=== PATIENT | female | born 1980 | race Caucasian/White ===

== ENCOUNTER 2017-07-04 15:45 | Emergency (ER) | payer BC, SELFPAY ==
[2017-07-04 17:41] VITALS: BP 138/99; PULSE 110; RESP 20; TEMP 37.6; O2SAT 98; BMI 33.4
--- NOTE | 2017-07-04 17:46 | HMH.EDUTC ---
[facility] [place]: Influenza Disposition: Home, Self-Care Condition on Discharge: Good Instructions: Influenza Additional Instructions: * Monitor Temp. Tylenol and/or Ibuprofen as needed. ER if fever is no less than 101 despite alternating Tylenol and Ibuprofen * Encourage fluids, water, Gatorade, powerade, pedialyte if infant/toddler/or child * Warm salt water gargles for throat irritation *Warm fluids *Sore throat lozenges *Sleep elevated *humidifier or vaporizer Lots of rest Increase fluids, water, Gatorade, powerade *Flonase 2 sprays each nostril daily but may take 2-3 days to notice improvement with it *Bromfed may cause drowsiness. Know how it effect you or your child. Before driving, caring for small children or sending your child to school *Your throat swab was sent to lab for culture. Those results area typically sent to your primary care physician. Be sure to follow up in 2-3 days if no improvement so they can review those results and treat if necessary If you dont have primary care I recommend you get one, but in the mean time you will have to return to a walk in clinic Follow up IMMEDIATELY for new or worsening of symptoms OR no noticeable improvement over the next 48-72 hours. 911 immediately for any life threatening symptoms such as chest pain or difficulty breathing Prescriptions: Brompheniramine/Pseudoephed/Dm [Bromfed DM Cough Syrup 5mL] 10 ml PO Q4H PRN #200 syrup PRN Reason: Cough Oseltamivir Phosphate [Tamiflu 75mg Capsule] 75 mg PO BID #10 capsule Referrals: Wilfred Alvarez MD [Primary Care Provider] - Time of Disposition: 17:59 Medical Decision Making Vital Signs: 07/04/17 17:41 Temperature 99.6 F Temperature Source Temporal Artery Scan Pulse Rate [Right] 110 H Respiratory Rate 20 Blood Pressure [Right Arm] 138/99 Blood Pressure Mean [Right Arm] 112 Blood Pressure Source [Right Arm] Automatic Cuff Blood Pressure Position [Right Arm] Sitting 02 Sat by Pulse Oximetry 98 Oxygen Delivery Method Room Air - Marino Inquiry Pt receiving controlled substance: No Marino was queried for this patient: No [facility] [place] - General Stated complaint: Cough,ferver,pain Mode of Arrival: Ambulatory Source of Information: Patient Limitations: No Limitations Description of Symptoms (Recalled from Triage Doc. by RN): COUGH, CONGESTION FEVER YESTERDAY HEENT Symptoms (Recalled from RN notes): Yes Resp Symptoms (Recalled from RN notes): No Skin Symptoms (Recalled from RN notes): No MS Symptoms (Recalled from RN notes): No Functional Status (Recalled from RN notes): N - History of Present Illness Provider Complaint: Patient states that she has been having flu like symptoms since yesterday State that she began running a fever and it has continued to get worse State that she feel like she has the flu. State that body aches has continued to get worse so she came in to get checked - Related Data Previous Rx's Medication Instructions Recorded Brompheniramine/Pseudoephed/Dm 10 ml PO Q4H PRN #200 syrup 07/04/17 [Bromfed DM Cough Syrup 5mL] Oseltamivir Phosphate [Tamiflu 75 mg PO BID #10 cap 07/04/17 75mg Capsule] Allergies Allergy/AdvReac Type Severity Reaction Status Date / Time No Known Allergies Allergy Unverified 06/19/17 15:38 - Worker's Comp Is this a Worker's Comp case?: No [facility] History - *Social History Smoking Status: Current every day smoker Tobacco Type: cigarettes Alcohol Intake: never - Psychiatric History Expresses thoughts of harming self/others: None Suicide Plan Description: No Plan - Constitutional Reports body ache(s), Reports chills, Reports fever(s) - ENT Reports nasal congestion, Reports sinus pain - Respiratory Reports cough Physical Exam - General General appearance: alert, in no apparent distress - Expanded ENT Exam Nose exam: Present: sinus tenderness - Respiratory Respiratory exam: Present: normal lung sounds bilat
--- NOTE | 2017-07-04 17:52 | ED_ITS ---
[facility] [place]: Influenza Disposition: Home, Self-Care Condition on Discharge: Good Instructions: Influenza Additional Instructions: * Monitor Temp. Tylenol and/or Ibuprofen as needed. ER if fever is no less than 101 despite alternating Tylenol and Ibuprofen * Encourage fluids, water, Gatorade, powerade, pedialyte if infant/toddler/or child * Warm salt water gargles for throat irritation *Warm fluids *Sore throat lozenges *Sleep elevated *humidifier or vaporizer Lots of rest Increase fluids, water, Gatorade, powerade *Flonase 2 sprays each nostril daily but may take 2-3 days to notice improvement with it *Bromfed may cause drowsiness. Know how it effect you or your child. Before driving, caring for small children or sending your child to school *Your throat swab was sent to lab for culture. Those results area typically sent to your primary care physician. Be sure to follow up in 2-3 days if no improvement so they can review those results and treat if necessary If you don? t have primary care I recommend you get one, but in the mean time you will have to return to a walk in clinic Follow up IMMEDIATELY for new or worsening of symptoms OR no noticeable improvement over the next 48-72 hours. 911 immediately for any life threatening symptoms such as chest pain or difficulty breathing Prescriptions: Brompheniramine/Pseudoephed/Dm [Bromfed DM Cough Syrup 5mL] 10 ml PO Q4H PRN # 200 syrup PRN Reason: Cough Oseltamivir Phosphate [Tamiflu 75mg Capsule] 75 mg PO BID #10 capsule Referrals: Wilfred Alvarez MD [Primary Care Provider] - Time of Disposition: 17:59 Medical Decision Making Vital Signs: 07/04/17 17:41 Temperature 99.6 F Temperature Source Temporal Artery Scan Pulse Rate [Right] 110 H Respiratory Rate 20 Blood Pressure [Right Arm] 138/99 Blood Pressure Mean [Right Arm] 112 Blood Pressure Source [Right Arm] Automatic Cuff Blood Pressure Position [Right Arm] Sitting 02 Sat by Pulse Oximetry 98 Oxygen Delivery Method Room Air - Marino Inquiry Pt receiving controlled substance: No Marino was queried for this patient: No [facility] [place] - General Stated complaint: Cough,ferver,pain Mode of Arrival: Ambulatory Source of Information: Patient Limitations: No Limitations Description of Symptoms (Recalled from Triage Doc. by RN): COUGH, CONGESTION FEVER YESTERDAY HEENT Symptoms (Recalled from RN notes): Yes Resp Symptoms (Recalled from RN notes): No Skin Symptoms (Recalled from RN notes): No MS Symptoms (Recalled from RN notes): No Functional Status (Recalled from RN notes): N - History of Present Illness Provider Complaint: Patient states that she has been having flu like symptoms since yesterday State that she began running a fever and it has continued to get worse State that she feel like she has the flu. State that body aches has continued to get worse so she came in to get checked - Related Data Previous Rx's Medication Instructions Recorded Brompheniramine/Pseudoephed/Dm 10 ml PO Q4H PRN #200 syrup 07/04/17 [Bromfed DM Cough Syrup 5mL] Oseltamivir Phosphate [Tamiflu 75 mg PO BID #10 cap 07/04/17 75mg Capsule] Allergies Allergy/AdvReac Type Severity Reaction Status Date / Time No Known Allergies Allergy Unverified 06/19/17 15:38 - Worker's Comp Is this a Worker's Comp case?: No [facility] History -
[2017-07-04 17:58] LABS: UTC Influenza A Antigen Positive (Negative); UTC Influenza B Antigen Negative (Negative)
== END 2017-07-04 18:05 | disposition home or self-care (01) ==
PROVIDERS: Emergency Provider Nurse Practitioner; PCP Family Medicine
DX: J10.1 Influenza due to other identified influenza virus with other respiratory manifestations (principal); F17.210 Nicotine dependence, cigarettes, uncomplicated
CPT/HCPCS: 87276; 87430; 87804; 87880; 99202

== ENCOUNTER → 2019-01-16 15:02 | Outpatient (CLI) | payer OTHER, SELFPAY ==
[2019-01-16 17:35] LABS: Alanine Aminotransferase 83 U/L (12-78); Albumin Level 3.8 gm/dL (3.4-5.0); Albumin/Globulin Ratio 1.1 (1.1-1.8); Alkaline Phosphatase 73 U/L (46-116); Anion Gap 11.3 mEq/L (5-15); Aspartate Amino Transferase 61 U/L (15-37); Bilirubin,Total 0.3 mg/dL (0.2-1.0); Blood Urea Nitrogen 10 mg/dL (7-18); Calcium 9.3 mg/dL (8.5-10.1); Carbon Dioxide 30 mmol/L (21.0-32.0); Chloride 101 mmol/L (98-107); Chol/HDL Ratio 4.7 (1-3.5); Cholesterol 159 mg/dL (140-200); Creatinine,Serum 0.69 mg/dL (0.55-1.02); Estimated Glomerular Filt Rate 96 ml/min (>60); GFR (African American) 116 ML/MIN (>60); Globulin 3.4 gm/dl (1.3-3.2); Glucose 216 mg/dL (74-106); HDL Cholesterol 34 mg/dL (29-89); LDL Cholesterol 76 mg/dL (0-130); Potassium 4.3 mmoL/L (3.5-5.1); Sodium 138 mmol/L (136-145); Total Protein,Serum 7.2 gm/dL (6.4-8.2); Triglycerides 245 mg/dL (30-200); VLDL Cholesterol 49 mg/dL (0-40)
[2019-01-16 17:46] LABS: Hemoglobin A1C 11.4 % (0.0-7.0)
[2019-01-22 06:20] LABS: Hep A Ab, IgM Negative (Negative); Hepatitis B Core Antibody IgM Negative (Negative); Hepatitis B Surface Antigen Negative (Negative)
[2019-01-23 08:15] LABS: Hepatitis C Antibody <0.1 s/co ratio (0.0-0.9)
== END ==
PROVIDERS: Visit Provider Nurse Practitioner Family
DX: Z00.00 Encounter for general adult medical examination without abnormal findings (principal); R74.8 Abnormal levels of other serum enzymes; E11.9 Type 2 diabetes mellitus without complications; I10 Essential (primary) hypertension
CPT/HCPCS: 36415; 80053; 80061; 80074; 83036

== ENCOUNTER → 2019-02-17 08:35 | Outpatient (CLI) | payer OTHER, SELFPAY ==
--- NOTE | 2019-02-17 08:42 | US_ITS ---
PROCEDURE: US LIVER CLINICAL INDICATION: ELEVATED LIVER ENZYMES COMPARISON: No exams were available for comparison FINDINGS: There is slight diffuse increased echogenicity of the liver consistent with fatty liver. No focal liver lesions or biliary ductal dilatation. There is appropriate direction of blood flow within a non dilated portal vein. No gallstones, gallbladder wall thickening, or pericholecystic fluid. The right kidney has an unremarkable appearance. IMPRESSION: Fatty liver Dictated by: Laci Blake MD 02/17/2019 16:11 Signed by: <Electronically signed by Laci Blake MD in [place]> 02/17/2019 16:11
== END ==
PROVIDERS: PCP Nurse Practitioner Family; Visit Provider Nurse Practitioner Family
DX: R74.8 Abnormal levels of other serum enzymes (principal)
CPT/HCPCS: 76705

== ENCOUNTER → 2019-02-27 08:50 | Outpatient (CLI) | payer OTHER, SELFPAY | PROVIDERS: PCP Internal Medicine Adolescent Medicine; Visit Provider Nurse Practitioner Family | DX: Z71.3 Dietary counseling and surveillance (principal); E11.9 Type 2 diabetes mellitus without complications | CPT/HCPCS: 97802 ==

== ENCOUNTER 2020-05-28 10:19 | Emergency (ER) | payer OTHER, SELFPAY ==
[2020-05-28 10:49] VITALS: BP 170/90; PULSE 100; RESP 16; TEMP 37.2; O2SAT 98; BMI 32.1
--- NOTE | 2020-05-28 10:52 | HMH.EDUTC ---
[facility] [place] Clinical Impression: Acute bronchitis Qualifiers: Bronchitis organism: unspecified organism Qualified Code(s): J20.9 - Acute bronchitis, unspecified Sinusitis Qualifiers: Sinusitis location: unspecified location Chronicity: acute Recurrence: non-recurrent Qualified Code(s): J01.90 - Acute sinusitis, unspecified Disposition: Home, Self-Care Condition on Discharge: Good Instructions: Sinusitis, DI for Acute Bronchitis Additional Instructions: Drink plenty of fluids. Take tylenol or ibuprofen for pain or fever. Take the medications as directed. Follow up with your regular doctor. GO TO THE ER FOR ANY WORSENING SYMPTOMS The cough medication (promethazine dm) will make you drowsy, so don't drive or operate heavy machinery after taking it. Prescriptions: Promethazine/Dextromethorphan [Promethazine-Dm Syrup] 5 ml PO Q6HP PRN #240 syrup PRN Reason: Cough Transmission Status: Received by [facility] #[id number] methylPREDNISolone [Medrol] 4 mg PO DIRECTED 6 Days #21 tab.ds.pk Transmission Status: Received by [facility] #[id number] Benzonatate [Tessalon Perle 100mg Cap] 100 mg PO TIDP PRN #30 cap PRN Reason: Cough Transmission Status: Received by [facility] # Azithromycin [Z-Brandyn 250mg Tab*] 250 mg PO UD DOSE PK #6 tab Transmission Status: Received by [facility] #[id number] Referrals: Jack Merritt MD [Primary Care Provider] - Forms: Work/School Release Time of Disposition: 10:56 Medical Decision Making - Medical Records Medical records reviewed: No: I reviewed the patient's medical records. - Marino Inquiry Pt receiving controlled substance: No Vital Signs: 05/28/20 10:49 05/28/20 11:04 Temperature 98.9 F 98.9 F Temperature Source Oral Oral Pulse Rate 64 Pulse Rate [Right] 100 H Respiratory Rate 16 16 Blood Pressure 160/64 H Blood Pressure [Right Arm] 170/90 H Blood Pressure Mean [Right Arm] 116 Blood Pressure Source Automatic Cuff Blood Pressure Source [Right Arm] Automatic Cuff Blood Pressure Position Sitting Blood Pressure Position [Right Arm] Sitting 02 Sat by Pulse Oximetry 98 Oxygen Delivery Method Room Air Room Air [facility] HPI - General Stated complaint: Cough, fever Time Seen by Provider: 05/28/20 10:52 Mode of Arrival: Ambulatory Source of Information: Patient Limitations: No Limitations Description of Symptoms (Recalled from Triage Doc. by RN): pt c/o cough, sore throat, fever that started yesterday HEENT Symptoms (Recalled from RN notes): Yes (cough, sore throat, fever) Resp Symptoms (Recalled from RN notes): No Skin Symptoms (Recalled from RN notes): No MS Symptoms (Recalled from RN notes): No Functional Status (Recalled from RN notes): na - History of Present Illness Provider Complaint: She states that since yesterday she has had a cough, chest congestion, sinus congestion, and sore throat. She denies any known covid exposure, but her job causes her to be around the public. - Related Data Previous Rx's Medication Instructions Recorded Cyclobenzaprine HCl [Flexeril 10mg 10 mg PO Q8HP PRN #20 tablet 08/21/18 tablet] Ondansetron [Zofran 4mg ODT] 4 mg PO Q8HP PRN #10 tab.rapdis 09/16/18 Oseltamivir Phosphate [Tamiflu 75 mg PO BID #10 capsule 09/17/18 75mg Capsule] Azithromycin [Z-Brandyn 250mg Tab*] 250 mg PO UD DOSE PK #6 tab 05/28/20 Benzonatate [Tessalon Perle 100mg 100 mg PO TIDP PRN #30 cap 05/28/20 Cap] Promethazine/Dextromethorphan 5 ml PO Q6HP PRN #240 syrup 05/28/20 [Promethazine-Dm Syrup] methylPREDNISolone [Medrol] 4 mg PO DIRECTED 6 Days #21 05/28/20 tab.ds.pk Allergies Allergy/AdvReac Type Severity Reaction Status Date / Time No Known Allergies Allergy Verified 10/24/17 20:34 - Worker's Comp Is this a Worker's Comp case?: No H History - Hepatitis A Screen Drug use history?: No High risk sexual behaviors?: No History of sexually transmitted
[2020-05-28 11:04] VITALS: BP 160/64; PULSE 64; RESP 16; TEMP 37.2; O2SAT 96
== END 2020-05-28 11:05 | disposition home or self-care (01) ==
PROVIDERS: Emergency Provider Nurse Practitioner Family; PCP Internal Medicine Adolescent Medicine
DX: J20.9 Acute bronchitis, unspecified (principal); J01.90 Acute sinusitis, unspecified
CPT/HCPCS: 99201; U0003

== ENCOUNTER 2020-07-05 17:56 | Emergency (ER) | payer BC, SELFPAY ==
[2020-07-05 19:30] VITALS: BP 147/90; PULSE 87; RESP 19; TEMP 36.9; O2SAT 100; BMI 31.4
--- NOTE | 2020-07-05 19:50 | HMH.EDUTC ---
[facility] [place] Impression: URI (upper respiratory infection) Qualifiers: URI type: unspecified URI Qualified Code(s): J06.9 - Acute upper respiratory infection, unspecified Disposition: Home, Self-Care Condition on Discharge: Good Instructions: DI for COVID-19 (Suspected or Confirmed ), Coronavirus Disease 2019, Preventing the Spread of Coronavirus Discharge Instructions, Sinusitis (Alternative Therapy) Additional Instructions: *Monitor Temp, Over the counter Motrin or Tylenol as directed/as needed Tylenol every 4 hours and Motrin every 6 hours (as long as your family doctor has told you that you can take it) for fever or pain. and straight to ER if unable to lower temp less than 101.0 after medication given *Warm salt water gargles may help to soothe the throat *Throat Lozenges *Warm fluids like tea with honey may help to soothe the throat *Sleep elevated *Humidifier/Vaporizer *Flonase 2 sprays in each nostril daily but be aware that it may take 2-3 days before you notice improvement Follow up IMMEDIATELY for new or worsening symptoms or no Noticeable improvement over the next 48-72 hours. 911 for difficulty breathing or swallowing You were tested for today for COVID19 your test result should be back in the next 24-48 hours, you may call to the [facility] to see if your test results are back in the next 48 hours [phone] [facility] hours are 9am-9pm You was given a handout with instructions for Self Quarantine and Self isolation for while you wait on test results and what to do if they are positive If you are positive the Health Dept will be contacting you also Prescriptions: Fluticasone Propionate [Flonase 50mcg nasal spray 16gm] 1 spr NS DAILY #1 bottle Transmission Status: Pending to [id number] Benzonatate [Tessalon Perle 100mg Cap*] 100 mg PO TID PRN #20 cap PRN Reason: Cough Transmission Status: [facility] to [facility] Azithromycin [Z-Brandyn 250mg Tab] 250 mg PO DIRECTED #6 tab Transmission Status: P[facility] to [facility] Referrals: Jack Merritt MD [Primary Care Provider] - As needed Forms: Work/School Release Time of Disposition: 19:57 Medical Decision Making - Marino Inquiry Pt receiving controlled substance: No Marino was queried for this patient: No Vital Signs: 07/05/20 19:30 Temperature 98.4 F Temperature Source Oral Pulse Rate [Right Brachial] 87 Respiratory Rate 19 Blood Pressure [Right Arm] 147/90 H Blood Pressure Mean [Right Arm] 109 Blood Pressure Source [Right Arm] Automatic Cuff Blood Pressure Position [Right Arm] Sitting 02 Sat by Pulse Oximetry 100 Oxygen Delivery Method Room Air - Lab Data Lab results reviewed: Yes: I reviewed the patient's lab results. Orders (Tests/Meds): ORDERS Category Date Time Status Covid-19 Nasal PCR ([facility]) Routine Lab 07/05/20 19:39 Ordered Medical Decision Narrative: Patient reports that she has taken azithromycin and tessalone perrles before without reactions or complications [facility] [place] General Stated complaint: cough Time Seen by Provider: 07/05/20 19:50 Mode of Arrival: Ambulatory Source of Information: Patient Limitations: No Limitations Description of Symptoms (Recalled from Triage Doc. by RN): PATEINT C/O COUGH, PAIN WITH BREATHING, HEADACHE AND DIARRHEA X 3 DAYS HEENT Symptoms (Recalled from RN notes): No Resp Symptoms (Recalled from RN notes): No Skin Symptoms (Recalled from RN notes): No MS Symptoms (Recalled from RN notes): No Functional Status (Recalled from RN notes): WNL - History of Present Illness Provider Complaint: Patient state that she thinks she has a sinus infection State that she has been having sinus pain and pressure, headache, sore throat and cough State that she has been coughing so much at times it makes her head hurt State that she was unable to go to work because they wont let her return until she gets tested for COVID - Related Data Previous Rx's Medication
[2020-07-05 20:15] VITALS: BP 147/90; PULSE 87; RESP 19; TEMP 36.9; O2SAT 100
[2020-07-05 21:16] LABS: UTC Influenza A Antigen Negative (Negative); UTC Influenza B Antigen Negative (Negative)
== END 2020-07-05 20:16 | disposition home or self-care (01) ==
PROVIDERS: Emergency Provider Nurse Practitioner; PCP Internal Medicine Adolescent Medicine
DX: Z20.822 Contact with and (suspected) exposure to COVID-19 (principal); J06.9 Acute upper respiratory infection, unspecified; E11.9 Type 2 diabetes mellitus without complications
CPT/HCPCS: 87804; 99202; G0463; U0003

== ENCOUNTER → 2021-03-21 17:11 | Outpatient (CLI) | payer BC, SELFPAY | PROVIDERS: PCP Internal Medicine Adolescent Medicine; Visit Provider Nurse Practitioner | DX: Z20.822 Contact with and (suspected) exposure to COVID-19 (principal) | CPT/HCPCS: C9803; U0003; U0005 ==

== ENCOUNTER 2021-04-21 12:12 | Emergency (ER) | payer BC, SELFPAY ==
[2021-04-21 12:44] VITALS: BMI 31.3
[2021-04-21 12:46] VITALS: BP 132/86; PULSE 106; RESP 18; TEMP 37.2; O2SAT 98; BMI 31.3
--- NOTE | 2021-04-21 12:52 | HMH.EDUTC ---
[facility] [place] Clinical Impression: URI (upper respiratory infection) Qualifiers: URI type: unspecified viral URI Qualified Code(s): J06.9 - Acute upper respiratory infection, unspecified Disposition: Home, Self-Care Condition on Discharge: Good Instructions: DI for Viral Upper Respiratory Infection -- Adult Additional Instructions: No sign of a bacterial infection. Likely viral. Viruses can take 7-14 days to run their course. Nasal saline and bulb syringe or nose Mary to remove nasal drainage to help with nasal congestion. Hard to eat, drink, sleep with nasal congestion so important to keep this cleaned out. Monitor temp. Tylenol or Motrin as needed for pain or fever Encourage fluids, water, Gatorade, Powerade, Pedialyte if /toddler/child Warm salt water gargles Warm fluids Sore throat lozenges Sleep elevated Humidifier/vaporizer Follow-up immediately for new or worsening symptoms or no noticeable improvement over the next 48-72 hours. Prescriptions: predniSONE [Prednisone 20mg Tab] 20 mg PO BID #10 tab Transmission Status: Pending to [facility] Referrals: Jack Merritt MD [Primary Care Provider] - Time of Disposition: 14:11 Medical Decision Making - Marino Inquiry Pt receiving controlled substance: No Vital Signs: 04/21/21 12:46 Temperature 98.9 F Temperature Source Oral Pulse Rate [Right Radial] 106 H Respiratory Rate 18 Blood Pressure [Right Arm] 132/86 Blood Pressure Mean [Right Arm] 101 Blood Pressure Source [Right Arm] Automatic Cuff Blood Pressure Position [Right Arm] Sitting 02 Sat by Pulse Oximetry 98 Oxygen Delivery Method Room Air - Lab Data Lab Results 04/21/21 12:43: SARS-CoV-2 (PCR) Not detected, Influenza A Untype (PCR) Not detected, Influenza Type B (PCR) Not detected [facility] [place] - General Chief complaint: Urgent [facility] Stated complaint: congestion, sore throat, body aches Time Seen by Provider: 04/21/21 12:52 Mode of Arrival: Ambulatory Source of Information: Patient Limitations: No Limitations Description of Symptoms (Recalled from Triage Doc. by RN): Pt c/o congestion, sore throat, bodyaches, cough since sunday HEENT Symptoms (Recalled from RN notes): Yes (sore throat, congestion) Resp Symptoms (Recalled from RN notes): Yes (cough) Skin Symptoms (Recalled from RN notes): No MS Symptoms (Recalled from RN notes): Yes (bodyaches) Functional Status (Recalled from RN notes): n/a - History of Present Illness Provider Complaint: 41 yr old female presents for c/o congestion, sore throat, bodyaches, cough since sunday - Related Data Previous Rx's Medication Instructions Recorded Cyclobenzaprine HCl [Flexeril 10mg 10 mg PO Q8HP PRN #20 tablet 08/21/18 tablet] Ondansetron [Zofran 4mg ODT] 4 mg PO Q8HP PRN #10 tab.rapdis 09/16/18 Oseltamivir Phosphate [Tamiflu 75 mg PO BID #10 capsule 09/17/18 75mg Capsule] Azithromycin [Z-Brandyn 250mg Tab*] 250 mg PO UD DOSE PK #6 tab 05/28/20 Benzonatate [Tessalon Perle 100mg 100 mg PO TIDP PRN #30 cap 05/28/20 Cap] Promethazine/Dextromethorphan 5 ml PO Q6HP PRN #240 syrup 05/28/20 [Promethazine-Dm Syrup] methylPREDNISolone [Medrol] 4 mg PO DIRECTED 6 Days #21 05/28/20 tab.ds.pk Azithromycin [Z-Brandyn 250mg Tab] 250 mg PO DIRECTED #6 tab 07/05/20 Benzonatate [Tessalon Perle 100mg 100 mg PO TID PRN #20 cap 07/05/20 Cap*] Fluticasone Propionate [Flonase 1 spr NS DAILY #1 bottle 07/05/20 50mcg nasal spray 16gm] predniSONE [Prednisone 20mg 20 mg PO BID #10 tab 04/21/21 Tab] Allergies Allergy/AdvReac Type Severity Reaction Status Date / Time No Known Allergies Allergy Verified 10/24/17 20:34 - Worker's Comp Is this a Worker's Comp case?: No [facility] History - Hepatitis A Screen Drug use history?: No High risk sexual behaviors?: No History of sexually transmitted infection?: No Currently employed?: No Childcare worker?: No Do you have indoor plumbing
[2021-04-21 13:20] LABS: Coronavirus 19, PCR Not Detected (NotDetected); Influenza A, PCR Not Detected (NotDetected); Influenza B, PCR Not Detected (NotDetected)
[2021-04-21 14:05] VITALS: BP 132/86; PULSE 106; RESP 18; TEMP 37.2; O2SAT 98
[2021-04-21 14:56] LABS: UTC Strep Screen (Rapid) Negative (Negative)
== END 2021-04-21 14:05 | disposition home or self-care (01) ==
PROVIDERS: Emergency Provider Nurse Practitioner Family; PCP Internal Medicine Adolescent Medicine
DX: J06.9 Acute upper respiratory infection, unspecified (principal); E11.9 Type 2 diabetes mellitus without complications
CPT/HCPCS: 87880; 99203; C9803; G0463; U0003; U0005

== ENCOUNTER → 2021-05-31 17:40 | Outpatient (CLI) | payer BC, SELFPAY ==
[2021-05-31 19:27] LABS: Alanine Aminotransferase 14 U/L (12-78); Albumin Level 4.7 g/dl (3.5-5.0); Albumin/Globulin Ratio 1.8 (1.1-1.8); Alkaline Phosphatase 59 U/L (38-126); Anion Gap 14.2 mEq/L (5-15); Aspartate Amino Transferase 22 U/L (14-36); Bilirubin,Total 0.2 mg/dl (0.2-1.3); Blood Urea Nitrogen 17 mg/dl (7-17); Calcium 10.4 mg/dl (8.4-10.2); Carbon Dioxide 29 mmol/L (22.0-30.0); Chloride 98 mmol/L (98-107); Chol/HDL Ratio 3.2 (1-3.5); Cholesterol 154 mg/dl (140-200); Estimated Glomerular Filt Rate 93 ml/min (>60); GFR (African American) 113 ML/MIN (>60); Globulin 2.6 g/dL (1.3-3.2); Glucose 94 mg/dl (74-100); HDL Cholesterol 48 mg/dl (40-60); Potassium 4.2 mmoL/L (3.5-5.1); Sodium 137 mmol/L (136-145); Total Protein,Serum 7.3 g/dl (6.3-8.2); Triglycerides 252 mg/dl (30-150); VLDL Cholesterol 50 mg/dL (0-40)
[2021-05-31 19:37] LABS: Direct LDL Cholesterol 76.54 mg/dL (100-129)
== END ==
PROVIDERS: Visit Provider Nurse Practitioner Family
DX: Z00.00 Encounter for general adult medical examination without abnormal findings (principal); I10 Essential (primary) hypertension; E11.9 Type 2 diabetes mellitus without complications
CPT/HCPCS: 36415; 80053; 80061; 83036

== ENCOUNTER 2021-09-09 10:27 | Emergency (ER) | payer OTHER, SELFPAY ==
[2021-09-09 11:40] VITALS: BP 152/87; PULSE 95; RESP 18; TEMP 36.6; O2SAT 98; BMI 32.1
--- NOTE | 2021-09-09 12:02 | HMH.EDUTC ---
[facility] [place] Disposition Clinical Impression: Sinusitis Qualifiers: Sinusitis location: unspecified location Chronicity: unspecified Qualified Code(s): J32.9 - Chronic sinusitis, unspecified Acute bronchitis Qualifiers: Bronchitis organism: unspecified organism Qualified Code(s): J20.9 - Acute bronchitis, unspecified Disposition: Home, Self-Care Condition on Discharge: Good Instructions: Sinusitis, DI for Sinusitis, Acute Bronchitis Additional Instructions: ? Start antibiotic today. Be sure to complete entire prescription even if feeling better ? Monitor temp. Tylenol every 4 hours as needed and / or ibuprofen every 6 hours as needed ( As long as your primary care physician has told you that it ok to take both. For fever/aches/pains ER if no less than 101 despite Tylenol or Motrin ? Humidifier/vaporizer or hot steamy shower ? Inhaler every 4-6 hours as needed like we discussed. If unsure how to use it, ask pharmacist to demonstrate how. Should help open airways and improve cough, wheezing, and shortness of breath ? Mucinex during the day for your cough and cough suppressant only at night. Be sure to drink lots of water. Insurance may not cover a prescriptions for mucinex. Might be cheaper to get 400mg tablets and take 2 tablet in the morning, mid-day and evening with lots of water. Follow up IMMEDIATELY for new or worsening of symptoms OR no noticeable improvement over the next 48-72 hours. 911 immediately for any life threatening symptoms such as chest pain or difficulty breathing Prescriptions: Albuterol Sulfate [Proventil-HFA 90mcg/puff Inh] 1 - 2 puffs IH Q4HP PRN #1 each PRN Reason: Wheezing Transmission Status: Pending to [facility] guaiFENesin [Mucinex 600mg tablet] 1 - 2 tab PO Q12HP PRN #20 tab PRN Reason: Congestion Transmission Status: Pending to [facility] Azithromycin [Z-Brandyn 250mg Tab] 250 mg PO DIRECTED #6 tab Transmission Status: Pending to [facility] Referrals: Jack Merritt MD [Primary Care Provider] - As needed Forms: Work/School Release Time of Disposition: 12:14 Medical Decision Making - Marino Inquiry Pt receiving controlled substance: No Marino was queried for this patient: No Vital Signs: 03/11/22 11:40 Temperature 97.9 F Temperature Source Oral Pulse Rate [Left Brachial] 95 H Respiratory Rate 18 Blood Pressure [Left Arm] 152/87 H Blood Pressure Mean [Left Arm] 108 Blood Pressure Source [Left Arm] Automatic Cuff Blood Pressure Position [Left Arm] Sitting 02 Sat by Pulse Oximetry 98 Oxygen Delivery Method Room Air Orders (Tests/Meds): ORDERS Category Date Time Status Covid-19 Nasal PCR ([facility]) Routine Lab 09/09/21 12:[address] [facility] [place] HPI - General Stated complaint: chest cold, covid test Time Seen by Provider: 09/09/21 12:03 Mode of Arrival: Ambulatory Source of Information: Patient Limitations: No Limitations Description of Symptoms (Recalled from Triage Doc. by RN): PATIENT C/O COUGH AND CHEST COLD X 2 DAYS. NEEDS COVID TEST TO RETURN TO WORK HEENT Symptoms (Recalled from RN notes): No Resp Symptoms (Recalled from RN notes): Yes Skin Symptoms (Recalled from RN notes): No MS Symptoms (Recalled from RN notes): No Functional Status (Recalled from RN notes): WNL - History of Present Illness Provider Complaint: Patient states that she has been having sinus issues on and off for over a week and thinks it may have moved into her chest States that she has been having cough and chest congestion for several days States that she feels like she may have bronchitis or something States that she has to get tested for COVID also because work will not let her return until she does - Related Data Previous Rx's Medication Instructions Recorded Cyclobenzaprine HCl [Flexeril 10mg 10 mg PO Q8HP PRN #20 tablet 08/21/18 tablet] Ondansetron [Zofran 4mg ODT] 4 mg PO Q8HP PRN #10 tab.rapdis 09/16/18 Oseltamivir Phosphate [Tamiflu 75 mg
[2021-09-09 12:18] VITALS: BP 152/87; PULSE 95; RESP 18; TEMP 36.6; O2SAT 98
== END 2021-09-09 12:25 | disposition home or self-care (01) ==
PROVIDERS: Emergency Provider Nurse Practitioner; PCP Internal Medicine Adolescent Medicine
DX: J20.9 Acute bronchitis, unspecified (principal); J32.9 Chronic sinusitis, unspecified; Z20.822 Contact with and (suspected) exposure to COVID-19; E11.9 Type 2 diabetes mellitus without complications; F17.210 Nicotine dependence, cigarettes, uncomplicated; Z79.899 Other long term (current) drug therapy
CPT/HCPCS: 99213; C9803; G0463; U0003; U0005

== ENCOUNTER 2021-10-06 17:32 | Emergency (ER) | payer OTHER, SELFPAY ==
[2021-10-06 17:40] VITALS: BP 152/82; PULSE 117; RESP 19; TEMP 36.9; O2SAT 100; BMI 35.9
--- NOTE | 2021-10-06 18:03 | HMH.EDUTC ---
[facility] [place] Clinical Impression: Flu-like symptoms Disposition: Home, Self-Care Condition on Discharge: Good Instructions: How to Avoid a Cold or Flu, Influenza Additional Instructions: ? Lots of rest ? Increase Fluids water, Gatorade, powerade, pedialyte,if infant/toddler/child ? Alternate Tylenol and / or ibuprofen as discussed for fever, aches, chills Follow up IMMEDIATELY with your family doctor for new or worsening Symptoms OR no noticeable improvement over the next 48-72 hours, 911 for difficulty or breathing ? You or your child area contagious until no fever, aches, chills for 24 hours with medication for symptoms ? Help Prevent the spread ? Wash your hands often. Use soap and water. Wash your hands after you use the bathroom, change a child's diapers, or sneeze. Wash your hands before you prepare or eat food. Use gel hand cleanser that has 60% alcohol, when soap and water are not available. Do not touch your eyes, nose, or mouth unless you have washed your hands first. ? Cover your mouth when you sneeze or cough. Cough into a tissue or the bend of your arm. If you use a tissue, throw it away immediately and wash your hands. ? Clean shared items with a germ-killing cleaner assistant. Clean table surfaces, doorknobs, and light switches. Do not share towels, silverware, and dishes with people who are sick. Wash bed sheets, towels, silverware, and dishes with soap and water. ? Wear a mask over your mouth and nose if you are sick. The face mask may help protect others from becoming infected with the flu. Wear the mask when in common areas of your home or if you seek care with a healthcare provider. ? Stay away from others if you are sick. Stay at home until 24 hours after your fever and symptoms are gone. Referrals: Jack Merritt MD [Primary Care Provider] - As needed Forms: Work/School Release Time of Disposition: 18:05 Medical Decision Making - Marino Inquiry Pt receiving controlled substance: No Marino was queried for this patient: No Vital Signs: 10/06/21 17:40 Temperature 98.5 F Temperature Source Oral Pulse Rate [Right Brachial] 117 H Respiratory Rate 19 Blood Pressure [Right Arm] 152/82 H Blood Pressure Mean [Right Arm] 105 Blood Pressure Source [Right Arm] Automatic Cuff Blood Pressure Position [Right Arm] Sitting 02 Sat by Pulse Oximetry 100 Oxygen Delivery Method Room Air - Lab Data Lab results reviewed: Yes: I reviewed the patient's lab results. [facility] [place] - General Stated complaint: fever, cough, chills Time Seen by Provider: 10/06/21 18:03 Mode of Arrival: Ambulatory Source of Information: Patient Limitations: No Limitations Description of Symptoms (Recalled from Triage Doc. by RN): [place] C/O FEVER, CHILLS, BODY ACHES AND COUGH X 2 DAYS HEENT Symptoms (Recalled from RN notes): No Resp Symptoms (Recalled from RN notes): Yes Skin Symptoms (Recalled from RN notes): No MS Symptoms (Recalled from RN notes): No Functional Status (Recalled from RN notes): WNL - History of Present Illness Provider Complaint: Patient states that she has not felt well for a couple of days States that several people at her work is out with influenza and she thinks she has it now too States that she has been having fever, body aches, chills and cough - Related Data Allergies Allergy/AdvReac Type Severity Reaction Status Date / Time No Known Allergies Allergy Verified 10/24/17 20:34 - Worker's Comp Is this a Worker's Comp case?: No [facility] History - Hepatitis A Screen Drug use history?: No High risk sexual behaviors?: No History of sexually transmitted infection?: No Currently employed?: No Childcare worker?: No Do you have indoor plumbing?: Yes Do you have electricity?: Yes Attestation statement:: This patient has been screened for Hepatitis A risk factors. I have reviewed the patient's past medical history: Yes Medical History: Reports:: Diabetes Mellitus Type 2 Denies:: Cancer, Chronic Obstructive Pulmon
[2021-10-06 18:07] LABS: UTC Influenza A Antigen Negative (Negative); UTC Influenza B Antigen Negative (Negative)
[2021-10-06 18:11] VITALS: BP 116/87; PULSE 19; RESP 19; TEMP 37.2; O2SAT 100
== END 2021-10-06 18:11 | disposition home or self-care (01) ==
PROVIDERS: Emergency Provider Nurse Practitioner; PCP Internal Medicine Adolescent Medicine
DX: J10.1 Influenza due to other identified influenza virus with other respiratory manifestations (principal); E11.9 Type 2 diabetes mellitus without complications; F17.210 Nicotine dependence, cigarettes, uncomplicated
CPT/HCPCS: 87804; 99212; G0463

== ENCOUNTER 2021-11-23 20:32 | Emergency (ER) | payer OTHER, SELFPAY ==
--- NOTE | 2021-11-23 20:40 | HMH.EDUTC ---
[facility] [place] Clinical Impression: Low back pain Qualifiers: Chronicity: unspecified Back pain laterality: left Sciatica presence: with sciatica Sciatica laterality: sciatica of left side Qualified Code(s): M54.42 - Lumbago with sciatica, left side Sciatica Qualifiers: Laterality: left Qualified Code(s): M54.32 - Sciatica, left side Disposition: Home, Self-Care Condition on Discharge: Good Additional Instructions: Go home and rest. It would be best if you rested tomorrow too. No heavy lifting. No twisting. Take the oral medications as directed. The muscle relaxer (cyclobenzaprine--Flexeril) will make you drowsy, so don't drive or operate heavy machinery after taking it. Don't start the oral steroids (medrol dose pack) until tomorrow, since you had the shots in here today. Follow up with your regular doctor. GO TO THE ER FOR ANY WORSENING SYMPTOMS OR CONCERN, ESPECIALLY BOWEL OR BLADDER ISSUES, SADDLE AREA NUMBNESS, FEVER, ETC Prescriptions: Cyclobenzaprine HCl [Cyclobenzaprine 10mg Tab] 10 mg PO BIDP PRN #20 tab PRN Reason: Muscle Spasm Transmission Status: Received by [facility] methylPREDNISolone [Medrol] 4 mg PO DIRECTED 6 Days #21 packet Transmission Status: Received by [facility] Referrals: Jack Merritt MD [Primary Care Provider] - Forms: Work/School Release Time of Disposition: 21:03 Medical Decision Making - Medical Records Medical records reviewed: No: I reviewed the patient's medical records. - Marino Inquiry Pt receiving controlled substance: No Vital Signs: 11/23/21 20:44 11/23/21 21:11 Temperature 98.7 F 98.7 F Temperature Source Oral Pulse Rate 95 H Pulse Rate [Left Radial] 95 H Respiratory Rate 18 18 Blood Pressure 167/85 H Blood Pressure [Right Arm] 167/85 H Blood Pressure Mean [Right Arm] 112 02 Sat by Pulse Oximetry 98 Orders (Tests/Meds): ED MEDICATIONS Discontinued Medications Generic Name Dose Route Start Last Admin Trade Name Freq PRN Reason Stop Dose Admin Ketorolac Tromethamine 60 mg 11/23/21 20:46 11/23/21 20:56 Ketorolac 60mg/2ml Vial IM 11/23/21 20:47 60 mg ONCE ONE Administration Methylprednisolone Sodium Succinate 125 mg 11/23/21 20:46 11/23/21 20:55 Methylprednisolone Sod Succ 125mg Vial IM 11/23/21 20:47 125 mg ONCE ONE Administration [facility] [place] HPI - General Stated complaint: lower back pain, left leg and foot pain Time Seen by Provider: 11/23/21 20:40 - History of Present Illness Provider Complaint: She states that for the past 2 days she has had low back pain that radiates down her left leg. .She denies any injury, falls, or mva. She denies any urinary complaints. - Related Data Previous Rx's Medication Instructions Recorded Cyclobenzaprine HCl 10 mg PO BIDP PRN #20 tab 11/23/21 [Cyclobenzaprine 10mg Tab] methylPREDNISolone [Medrol] 4 mg PO DIRECTED 6 Days #21 11/23/21 packet Allergies Allergy/AdvReac Type Severity Reaction Status Date / Time No Known Allergies Allergy Verified 11/23/21 20:47 [facility] History - Hepatitis A Screen Attestation statement:: This patient has been screened for Hepatitis A risk factors. I have reviewed the patient's past medical history: Yes Medical History: Reports:: Diabetes Mellitus Type 2 Denies:: Cancer, Chronic Obstructive Pulmonary Disease (COPD), Diabetes Mellitus Type 1, Hypertension, MRSA Other Surgeries: Yes: Appendectomy, Tubal Ligation Amputation: No Fractures: No - Social History Smoking Status: Current every day smoker Tobacco Type: cigarettes # Packs/Day (cigarettes): 1 Alcohol Intake: never Occupational Status: other ROS Obtained: Yes All systems reviewed & no additional complaints - Constitutional Constitutional: Denies chills, Denies fever(s) - Eyes Eyes: Denies eye discharge - ENT Ears, Nose, Mouth, and Throat: Denies dizziness, Denies otalgia, Denies sore throat - Cardiovascul
[2021-11-23 20:44] VITALS: BP 167/85; PULSE 95; RESP 18; TEMP 37.1; O2SAT 98; BMI 28.8
[2021-11-23 21:11] VITALS: BP 167/85; PULSE 95; RESP 18; TEMP 37.1
== END 2021-11-23 21:12 | disposition home or self-care (01) ==
PROVIDERS: Emergency Provider Nurse Practitioner Family; PCP Internal Medicine Adolescent Medicine
DX: M54.42 Lumbago with sciatica, left side (principal); E11.9 Type 2 diabetes mellitus without complications; Z72.0 Tobacco use
CPT/HCPCS: 96372; 99212; G0463

== ENCOUNTER 2021-12-21 17:30 | Outpatient (RCR) | payer OTHER, SELFPAY ==
--- NOTE | 2021-12-07 17:47 | HMH.PTOPEV ---
PT Outpatient Evaluation Rehab PT Outpatient Evaluation Start: 12/07/21 16:53 Freq: Status: Active Protocol: Document 12/07/21 17:25 DEWAYNE (Rec: 12/07/21 17:46 SUNILJENNYMARIELENA [id number]) Electronically Signed By Stone Vasquez, PT 12/07/21 17:25 Outpatient Therapy Subjective History Subjective History Patient is a 41 year old female presenting to outpatient PT with reports of acute LBP with BLE radicular symptoms L>R starting approximately 2 weeks ago. No recent imaging to report. No pelvic malalignment. Peripheralization noted with lumbar extension. Comorbidities include hx of diabetes, HTN and HL. Chief Complaint Pain,Spasms,Paresthesia Symptom Type Sharp,Burning,Shooting Symptoms Relieved By Rest/Positioning,Heat,Ice, Prescription Meds Symptoms Aggravated By Prone,Supine,Bending/Stooping, Physical Activity,Lifting Prior Functional Limitations None Current Functional Limitations Lifting,Housework,Sleeping, Bending/Stooping Symptom Description Constant but Variable Level of pain today (0-10) 5 Pain scale - at its best (0-10) 3 Pain scale - at its worst (0-10) 10 Lumbopelvic Eval Posture Thoracic Spine Posture Standing Position Increased Kyphosis Lumbar Spine Posture Standing Position Increased Lordosis Assistive device Assistive Devices None / NA Palapation tenderness left Lumbar/Sacral Palpation Findings Tenderness Lumbar/Sacral Palpation Overall Comment PSIS; glute med 3/4 Accessory Movement L4 left L5 left S1 left Range of Motion Lumbar Spine Active Flexion Range of 82 Motion (degrees) Lumbar Spine Active Extension Range of 22 Motion (degrees) Left Lumbar Spine Lateral Flexion Active 24 Range of Motion (degrees) Right Lumbar Spine Lateral Flexion 18 Active Range of Motion (degrees) Lumbar Spine ROM Limitations Soft Tissue Tightness,Pain Manual Muscle Test Bilateral Knee Extension Strength Grade 5 Normal Knee Flexion Strength Grade 5 Normal Hip Flexion Strength Grade 5 Normal Extensor Hallucis Longus Strength Grade 5 Normal Ankle Dorsiflexion Strength Grade 5 Normal Gastronemius/Soleus Strength Grade 5 Normal Altered Sensation Left LE Dermatome Level L5,S1 Special Tests Hip Andrey (SCARLETT) Test Positive Left,Positive Right
== END 2021-12-21 17:35 | disposition home or self-care (01) ==
LOC: PT 17:30
PROVIDERS: PCP Internal Medicine Adolescent Medicine; Visit Provider Nurse Practitioner Family
DX: M54.42 Lumbago with sciatica, left side (principal)
CPT/HCPCS: 97163

== ENCOUNTER 2022-01-10 19:46 | Emergency (ER) | payer OTHER, SELFPAY ==
--- NOTE | 2022-01-10 20:00 | XR_ITS ---
PROCEDURE INFORMATION: Exam: XR Chest Exam date and time: 01/10/2022 8:07 PM Age: 41 years old Clinical indication: Smoker's cough; Patient HX: Cough, smoker, no chest surgeries. TECHNIQUE: Imaging protocol: Radiologic exam of the chest. Views: 2 views. COMPARISON: CR CXR2V XR chest 2V 01/01/2018 11:18 AM FINDINGS: Lungs: Unremarkable. No consolidation. Pleural spaces: Unremarkable. No pleural effusion. No pneumothorax. Heart/Mediastinum: Unremarkable. No cardiomegaly. Bones/joints: Unremarkable. IMPRESSION: No acute findings.
[2022-01-10 20:01] VITALS: BP 148/93; PULSE 99; RESP 19; TEMP 37.2; O2SAT 96; BMI 30.8
--- NOTE | 2022-01-10 20:26 | HMH.EDUTC ---
[facility] [place] Disposition Clinical Impression: Acute bronchitis Qualifiers: Bronchitis organism: unspecified organism Qualified Code(s): J20.9 - Acute bronchitis, unspecified Disposition: Home, Self-Care Condition on Discharge: Good Instructions: Acute Bronchitis, DI for Acute Bronchitis, DI for COVID-19 (Suspected or Confirmed ), Preventing the Spread of Coronavirus Discharge Instructions Additional Instructions: Drink plenty of fluids. Take tylenol for pain or fever. Take the medications as directed. Follow up with your regular doctor. GO TO THE ER FOR ANY WORSENING SYMPTOMS Quarantine until you know the results of your covid-19 test. Notify your school or workplace of your results and follow their instructions regarding return to work/school. Don't start the oral steroids until tomorrow, since you had the shot here today. Prescriptions: Amoxicillin/Potassium Clav [Amox-Clav 875-125 mg Tablet] 1 tab PO BID #20 tab [facility]: [facility] Benzonatate [Benzonatate 100mg cap] 100 mg PO TIDP PRN #30 cap PRN Reason: Cough Transmission Status: Received by [facility] methylPREDNISolone [Medrol] 4 mg PO DIRECTED 6 Days #21 packet Transmission Status: Received by [facility] guaiFENesin [Mucinex 600mg tablet] 1 - 2 tab PO BIDP PRN #30 tab PRN Reason: Congestion Transmission [facility] Referrals: Jack Merritt MD [Primary Care Provider] - Forms: Work/School Release Time of Disposition: 20:36 Medical Decision Making - Medical Records Medical records reviewed: No: I reviewed the patient's medical records. - Marino Inquiry Pt receiving controlled substance: No Vital Signs: 01/10/22 20:01 01/10/22 20:51 Temperature 99.0 F 99.0 F Temperature Source Oral Pulse Rate 99 H Pulse Rate [Left] 99 H Respiratory Rate 19 19 Blood Pressure 148/93 H Blood Pressure [Right Arm] 148/93 H Blood Pressure Mean [Right Arm] 111 02 Sat by Pulse Oximetry 96 Orders (Tests/Meds): ED MEDICATIONS Discontinued Medications Generic Name Dose Route Start Last Admin Trade Name Freq PRN Reason Stop Dose Admin Ceftriaxone Sodium 1 gm 01/10/22 20:28 01/10/22 20:39 Ceftriaxone 1gm Vial IM 01/10/22 20:29 1 gm ONCE ONE Administration Lidocaine HCl 0 ml 01/10/22 20:28 01/10/22 20:39 Lidocaine 1% 5ml Pf Vial IM 01/10/22 20:29 2 ml ONCE ONE Administration Methylprednisolone Sodium Succinate 125 mg 01/10/22 20:28 01/10/22 20:39 Methylprednisolone Sod Succ 125mg Vial IM 01/10/22 20:29 125 mg ONCE ONE Administration ORDERS Category Date Time Status Full Resp Panel w/COVID ([facility]) Routine Lab 01/10/22 20:36 Received - Radiology Data #1 Image(s): Chest Image Reviewed: Yes I reviewed the patient's radiology image, Yes I have reviewed radiologist's interpretation Preliminary Findings: No Infiltrates Seen [facility] [place] HPI - General Stated complaint: cough,JUSTICE Time Seen by Provider: 01/10/22 20:05 Description of Symptoms (Recalled from Triage Doc. by RN): patient comes in with cough,headahce, fever, fatigue. patient has had bronchitits and pneumonia recently. patient states that she feels like she is not getting better HEENT Symptoms (Recalled from RN notes): No Resp Symptoms (Recalled from RN notes): Yes Skin Symptoms (Recalled from RN notes): No MS Symptoms (Recalled from RN notes): No Functional Status (Recalled from RN notes): n/a - History of Present Illness Provider Complaint: She states that she has been sick for the past 3 weeks. She has been treated for bronchitis. She has not got better. She has not been checked for covid-19. - Related Data Previous Rx's Medication Instructions Recorded Cyclobenzaprine HCl 10 mg PO BIDP PRN #20 tab 11/23/21 [Cyclobenzaprine 10mg Tab] methylPREDNISolone [Medrol] 4 mg PO DIRECTED 6 Days #21 11/23/21 packet Amoxicillin/Potass
[2022-01-10 20:41] LABS: Adenovirus,PCR Not Detected (NotDetected); Bordetella Pertussis Not Detected (NotDetected); Chlamydophila Pneumoniae, PCR Not Detected (NotDetected); Coronavirus 19, PCR Not Detected (NotDetected); Coronavirus 229E Not Detected (NotDetected); Coronavirus NL63 Not Detected (NotDetected); Coronavirus OC43 Not Detected (NotDetected); Coronovirus HKU1,PCR Not Detected (NotDetected); Human Metapneumovirus Not Detected (NotDetected); Influenza A, PCR Not Detected (NotDetected); Influenza AH1, 2009 Not Detected (NotDetected); Influenza AH1, PCR Not Detected (NotDetected); Influenza AH3,PCR Not Detected (NotDetected); Influenza B, PCR Not Detected (NotDetected); Mycoplasma Pneumoniae, PCR Not Detected (NotDetected); Parainfluenza 1, PCR Not Detected (NotDetected); Parainfluenza 2, PCR Not Detected (NotDetected); Parainfluenza 3, PCR Not Detected (NotDetected); Parainfluenza 4, PCR Not Detected (NotDetected); Respiratory Syncytial Virus Not Detected (NotDetected); Rhinovirus/Enterovirus Not Detected (NotDetected)
[2022-01-10 20:51] VITALS: BP 148/93; PULSE 99; RESP 19; TEMP 37.2
== END 2022-01-10 20:51 | disposition home or self-care (01) ==
PROVIDERS: Emergency Provider Nurse Practitioner Family; PCP Internal Medicine Adolescent Medicine
DX: J20.9 Acute bronchitis, unspecified (principal); R51.9 Headache, unspecified; R53.82 Chronic fatigue, unspecified; Z20.822 Contact with and (suspected) exposure to COVID-19; E11.9 Type 2 diabetes mellitus without complications; F17.210 Nicotine dependence, cigarettes, uncomplicated; Z79.52 Long term (current) use of systemic steroids
CPT/HCPCS: 71046; 87581; 87632; 87798; 96372; 99213; C9803; G0463; J0696; U0003; U0005

== ENCOUNTER 2023-04-29 13:06 | Emergency (ER) | payer MEDICAID, SELFPAY ==
[2023-04-29 13:50] VITALS: BP 164/92; PULSE 80; RESP 20; TEMP 36.7; O2SAT 100; BMI 30.9
--- NOTE | 2023-04-29 14:06 | EXP.UTC ---
Discharge Plan Disposition Patient Disposition: Home, Self-Care Condition: Good Prescriptions Prescriptions: New cephalexin 500 mg capsule 500 mg PO QID 7 Days Qty: 28 0RF sulfamethoxazole-trimethoprim [Bactrim DS] 800-160 mg tablet 1 tab PO BID 7 Days Qty: 14 0RF mupirocin 2 % ointment 1 applic topical TID 10 Days Qty: 22 0RF Rx Instructions: apply to wound as directed No Action metformin 1,000 mg Tablet 1,000 mg PO BID Referrals Follow up/Referrals: Jack Merritt MD [Primary Care Provider] - See instructions Activity Restrictions/Add. Instructions Additional Instructions/Restrictions: *Start antibiotic(s) immediately and be sure to take as ordered for the FULL length of time although you may be feeling better or start to see improvement in the next 24-48 hours *Monitor closely. Outlined redness so that you can monitor easier. Follow up immediately for new or worsening symptoms including but not limited to redness, swelling, streaking from site fever or chills. *Warm compress 15 minutes 3-4 times day *Never squeeze or pop these on your own. Seek immediate medical attention next time this occurs *Monitor Temp. Tylenol every 4 hours as needed and ibuprofen every 6 hours as needed (as long as your primary care doctor has told you that it is ok to take both. For fever, aches, pain. ER if no less that 101 despite Tylenol and ibuprofen ?Follow up immediately with your family doctor/primary care physician in the next 48-72 hours if no improvement Straight to ER if any life threatening symptoms Clinical Impressions Clinical Impression: Cellulitis Qualifiers: Site of cellulitis: unspecified site Qualified Code(s): L03.90 - Cellulitis, unspecified Instructions Patient Instructions: Trimethoprim/Sulfamethoxazole (Alternative Therapy), Cellulitis, Cephalexin Discharge ED Provider: Essence Garcia [facility] General Stated complaint: sore on right wrist Mode of Arrival: Ambulatory Source of Information: Patient Limitations: No Limitations Time Seen by Provider: 04/29/23 14:06 Description of Symptoms (Recalled from Triage Doc. by RN): PATIENT REPORTS SHE HIT HER RIGHT WRIST ON EDGE OF COUNTER APPROX 4 WEEKS AGO, AND NOW THERE IS PURULENT DRAINGE AND REDNESS/WARMTH TO AREA HEENT Symptoms (Recalled from RN notes): No Resp Symptoms (Recalled from RN notes): No Skin Symptoms (Recalled from RN notes): Yes MS Symptoms (Recalled from RN notes): No Functional Status (Recalled from RN notes): WNL History of Present Illness Provider Complaint: Patient states that she is a diabetic and about 4 weeks ago she hit her right wrist on the edge of the counter causing small laceration States that she is sometimes slow healing but has been taking care of it at home but noticed that it was starting to look red and warm on her wrist and yesterday picked at the sore on her wrist and she has been having purulent drianage from the wrist Related Data Home Medications Medication Instructions Recorded Confirmed metformin 1,000 mg tablet 1,000 mg PO BID 04/29/23 04/29/23 Previous Rx's Medication Instructions Recorded cephalexin 500 mg capsule 500 mg PO QID 7 days #28 caps 04/29/23 mupirocin 2 % topical ointment 1 applic topical TID 10 days #22 04/29/23 grams sulfamethoxazole 800 1 tab PO BID 7 days #14 tabs 04/29/23 mg-trimethoprim 160 mg tablet (Bactrim DS) Allergies Allergy/AdvReac Type Severity Reaction Status Date / Time No Known Allergies Allergy Verified 01/10/22 20:04 Worker's Comp Is this a Worker's Comp case?: No [facility] Disclaimer: The information contained in this section may have been updated after the patient was seen, as this information can be updated by other users. Medical History (Updated 04/29/23 @ 14:24 by Essence Garcia APRN) Diabetes mellitus, type 2 Hypertension Surgical History (Updated 04/29/23 @ 14:04 by Nataliya Smith RN) History of appendectom
[2023-04-29 14:36] VITALS: BP 164/92; PULSE 80; RESP 20; TEMP 36.7; O2SAT 100
== END 2023-04-29 14:38 | disposition home or self-care (01) ==
PROVIDERS: Emergency Provider Nurse Practitioner; PCP Internal Medicine Adolescent Medicine
DX: L03.113 Cellulitis of right upper limb (principal); E11.9 Type 2 diabetes mellitus without complications; I10 Essential (primary) hypertension; F17.210 Nicotine dependence, cigarettes, uncomplicated; Z79.84 Long term (current) use of oral hypoglycemic drugs
CPT/HCPCS: 99212; 99214; G0463

== ENCOUNTER 2023-11-02 22:04 | Emergency (ER) | payer SELFPAY ==
[2023-11-02 22:05] VITALS: BP 177/112; PULSE 100; RESP 16; TEMP 36.9; O2SAT 100; BMI 28.1
[2023-11-02 22:44] LABS: Basophils # 0.1 K/mm3 (0-0.2); Basophils % 1.1 % (0.1-2.0); Eosinophils # 0.2 K/mm3 (0.0-0.4); Eosinophils % 1.8 % (0.1-12.0); Hematocrit 43.8 % (37.0-47.0); Lymphocytes # 4.6 K/mm3 (0.7-4.5); Mean Corpuscular HGB Conc 32.1 g/dL (31.8-35.4); Mean Corpuscular Hemoglobin 27.6 pg (27.0-31.2); Mean Corpuscular Volume 86.1 fl (81-99); Mean Platelet Volume 8.1 fl (7.4-10.4); Monocytes # 0.7 K/mm3 (0.1-1.0); Monocytes % 5.4 % (1.7-9.3); Neutrophils # 7.1 K/mm3 (1.8-7.8); Neutrophils % 55.7 % (37.0-80.0); Platelet Count 314 K/mm3 (142-424); Red Blood Count 5.09 M/mm3 (4.20-5.40); Red Cell Distribution Width 15.1 % (11.5-17.5); White Blood Count 12.8 K/mm3 (4.8-10.8)
[2023-11-02 22:46] LABS: VBG Base Excess 0.3 mmol/L (-2.4-2.3); VBG Oxygen Saturation 63.5 % (50-70); VBG PCO2 48.9 mmol/L (35-51); VBG PH 7.34 mmol/L (7.31-7.41); VBG Total CO2 27.5 mmol/L (23-27)
[2023-11-02 22:47] LABS: Lactate Venous 2.3 mmol/L (0.4-2.0)
[2023-11-02 22:48] LABS: Chloride 99 mmol/L (98-107)
[2023-11-02 22:49] LABS: Potassium 3.9 mmoL/L (3.5-5.1); Sodium 137 mmol/L (136-145)
[2023-11-02] MEDS: 0.9 % SODIUM CHLORIDE 1000ML 1,000 ML 999 ML IV (22:50)
[2023-11-02 22:51] LABS: Alanine Aminotransferase 36 U/L (12-78); Aspartate Amino Transferase 30 U/L (14-36); Blood Urea Nitrogen 12 mg/dl (7-17); Creatinine Clearance Estimated 196 mL/min (50-200); Estimated Glomerular Filt Rate 136 ml/min (>60); GFR (African American) 165 ML/MIN (>60)
[2023-11-02 22:52] LABS: Albumin Level 4.7 g/dl (3.5-5.0); Albumin/Globulin Ratio 1.4 (1.1-1.8); Alkaline Phosphatase 77 U/L (38-126); Anion Gap 12.9 mEq/L (5-15); Bilirubin,Total 0.5 mg/dl (0.2-1.3); Carbon Dioxide 29 mmol/L (22.0-30.0); Globulin 3.3 g/dL (1.3-3.2); Glucose 348 mg/dl (74-100)
[2023-11-02 22:56] LABS: Hemoglobin A1C 11.5 % (4.0-6.0)
[2023-11-02 22:58] LABS: Appearance,Urine CLEAR (Clear); Bilirubin,Urine Negative (Negative); Blood, Urine Negative (Negative); Color,Urine YELLOW (Yellow); Glucose,Urine (UA) 3+ (Negative); Ketones,Urine Negative (Negative); Leukocyte Esterase,Urine Negative (Negative); Microscopic, Urine URINE MICROSCOPIC (MICROSCOPIC); Nitrate,Urine Negative (Negative); Protein,Urine Negative (Negative); Specific Gravity, Urine 1.015 (1.005-1.030); Urobilinogen,Urine 0.2 EU/dl (0.2)
--- NOTE | 2023-11-02 23:00 | PC.NURSE ---
rounded on patient, no needs, spouse at bedside
--- NOTE | 2023-11-02 23:02 | HMH.EDGENADL ---
Discharge Plan Disposition Patient Disposition: Home, Self-Care Condition: Good Prescriptions Prescriptions: No Action metformin 1,000 mg Tablet 1,000 mg PO BID cephalexin 500 mg capsule 500 mg PO QID 7 Days Qty: 28 0RF sulfamethoxazole-trimethoprim [Bactrim DS] 800-160 mg tablet 1 tab PO BID 7 Days Qty: 14 0RF mupirocin 2 % ointment 1 applic topical TID 10 Days Qty: 22 0RF Rx Instructions: apply to wound as directed Referrals Follow up/Referrals: Jack Merritt MD [Primary Care Provider] - See instructions Activity Restrictions/Add. Instructions Additional Instructions/Restrictions: Talk to your family doctor about starting insulin. Your A1c today was 11.5, which is too high for metformin to manage. Call your family doctor to establish care for this visit to the emergency department and schedule follow-up within 48 hours to ensure improvement. If you have any worsening of your condition or any other concerning signs or symptoms, return to the emergency department or your primary care doctor for further evaluation. Clinical Impressions Clinical Impression: Acute dehydration, Acute hyperglycemia Instructions Patient Instructions: DI for Hyperglycemia -- Adult Discharge ED Provider: Susan Chakraborty General Adult HPI <Floyd Serrano MD - Last Filed: 11/02/23 23:05> General Chief complaint: Hyper/Hypoglycemia Stated complaint: elevated blood sugar level, h/a, weakness Time Seen by Provider: 11/02/23 22:08 Mode of Arrival: Ambulatory Source of Information: Patient Limitations: No Limitations Description of Symptoms (Recalled from ER Triage Doc. by RN): patient ambulatory to ED with complaints of hyperglycemia. She reports that she has had increaed lethargy, headache, and dizzy today. Patient home glucometer read 534, FSBS @ER 384. History of Present Illness HPI narrative: Please note that above description of symptoms, in this electronic medical record under categorization of recalled from ER triage doctor by RN are reflective of an initial nursing assessment, however, is not reflective of my full history and physical exam that was personally taken and clarified. Consequentially, this preceding description of symptoms, which may include the patient's categorized chief complaint in the EMR, do not reflect my personal clinical impression, and the ultimate description of history of present illness and patient stated complaints should be deferred to this section of the note. Unless stated otherwise or congruent with this section of the note, additional signs, symptoms, or incongruence should be interpreted as inaccurate with my clinical impression. Related Data Home Medications Medication Instructions Recorded Confirmed metformin 1,000 mg tablet 1,000 mg PO BID 04/29/23 04/29/23 Previous Rx's Medication Instructions Recorded cephalexin 500 mg capsule 500 mg PO QID 7 days #28 caps 04/29/23 mupirocin 2 % topical ointment 1 applic topical TID 10 days #22 04/29/23 grams sulfamethoxazole 800 1 tab PO BID 7 days #14 tabs 04/29/23 mg-trimethoprim 160 mg tablet (Bactrim DS) Allergies Allergy/AdvReac Type Severity Reaction Status Date / Time No Known Allergies Allergy Verified 01/10/22 20:04 [facility] <Floyd Serrano MD - Last Filed: 11/02/23 23:05> [facility] Disclaimer: The information contained in this section may have been updated after the patient was seen, as this information can be updated by other users. Medical History (Updated 11/02/23 @ 23:05 by Floyd Serrano MD) Diabetes mellitus, type 2 Hypertension Surgical History (Updated 04/29/23 @ 14:04 by Nataliya Smith RN) History of tubal ligation History of appendectomy Social History Smoking Status: Never smoker alcohol intake: never current occupational status: other Travel in the last 8 weeks: None <Floyd Serrano MD - Last Filed: 11/02/23 23:05> ROS Obtained: Yes All systems reviewed & no additional complaints except as documented Physical Exam <Floyd Serrano MD - Last Filed: 11/02/23 23:05> General General appearance: alert and in no apparent distress Head Head exam: atraumatic and normocephalic Eye Eye exam: Present normal appearance, PERRL and EOMI ENT ENT exam: Present mucous membranes moist Neck Neck exam: Present normal inspection, full ROM and trachea midline Respiratory Respiratory exam: Absent respiratory distress, wheezes, stridor, accessory muscle use or prolonged expiratory phase Cardiovascular Cardiovascular exam: Present normal rhythm Abdominal Exam Abdominal exam: Present soft; Absent distention, tenderness, guarding, rebound or rigidity Extremities Exam Extremities exam: Absent edema Neurological Exam Neurological exam: Present alert, oriented X3, CN II-XII intact and normal gait; Absent motor sensory deficit Skin Skin exam: Present warm and dry; Absent diaphoresis or erythema Medical Decision Making <Floyd Serrano MD - Last Filed: 11/02/23 23:05> Medical Records Medical records reviewed: Yes I reviewed the patient's medical records. [place] Inquiry Pt receiving controlled substance: No [place] was queried for this patient: No Vital Signs: 11/02/23 22:05 11/03/23 00:09 Temperature 98.5 F 98.1 F Temperature Source Oral Oral Pulse Rate 81 Pulse Rate [Left] 100 H Respiratory Rate 16 15 Blood Pressure 152/91 H Blood Pressure [Right Arm] 177/112 H Blood Pressure Mean [Right Arm] 133 Blood Pressure Source Automatic Cuff Blood Pressure Position Sitting 02 Sat by Pulse Oximetry 100 Oxygen Delivery Method Room Air Room Air Lab Data Lab Results 11/02/23 22:29: VBG pH 7.34, VBG pCO2 48.9, VBG pO2 31.0, VBG HCO3 26.0, VBG Total CO2 27.5 H, VBG O2 Saturation 63.5, VBG Base Excess 0.3, VBG Lactic Acid 2.3 H 11/02/23 22:36: WBC 12.8 H, RBC 5.09, Hgb 14.0, Hct 43.8, MCV 86.1, MCH 27.6, MCHC 32.1, RDW 15.1, Plt Count 314, MPV 8.1, Neut % (Auto) 55.7, Lymph % (Auto) 36.0, [place] % (Auto) 5.4, Eos % (Auto) 1.8, Baso % (Auto) 1.1, Neut # (Auto) 7.1, Lymph # (Auto) 4.6 H, [place] # (Auto) 0.7, Eos # (Auto) 0.2, Baso # (Auto) 0.1, Sodium 137, Potassium 3.9, Chloride 99, Carbon Dioxide 29, Anion Gap 12.9, BUN 12, Creatinine 0.50 L, Estimated Creat Clear 196, Estimated GFR 136, Est GFR ( Amer) 165, Glucose 348 H, Hemoglobin A1c 11.5 H, Calcium 10.0, Total Bilirubin 0.5, AST 30, ALT 36, Alkaline Phosphatase 77, Total Protein 8.0, Albumin 4.7, Globulin 3.3 H, Albumin/Globulin Ratio 1.4 11/02/23 22:53: Urine Color Yellow, Urine Appearance Clear, Urine pH 6.0, Ur Specific [place] 1.015, Urine Protein Negative, Urine Glucose (UA) 3+, Urine Ketones Negative, Urine Blood Negative, Urine Nitrate Negative, Urine Bilirubin Negative, Urine Urobilinogen 0.2, Ur Leukocyte Esterase Negative, Urine RBC None, Urine WBC 3-5, Ur Squamous Epith Cells Occasional, Urine Bacteria None 11/02/23 22:36 11/02/23 22:36 Orders (Tests/Meds): ED MEDICATIONS Discontinued Medications Generic Name Dose Route Start Last Admin Trade Name Ирина PRN Reason Stop Dose Admin Sodium Chloride 1,000 mls @ 999 mls/hr 11/02/23 22:28 11/02/23 22:50 Sod Chlor 0.9% 1000ml Bag IV 11/02/23 23:28 999 mls/hr .Q1H1M ONE Administration Insulin Human Regular 5 unit 11/02/23 23:00 11/02/23 23:07 Insulin Human Regular 100 Units/Ml 10ml Vial IV 11/02/23 23:01 5 unit ONCE ONE Administration ORDERS Category Date Time Status CBC w/Auto Diff [Complete Blood Count Auto Diff] Stat Lab 11/02/23 22:36 Completed CMP [Comprehensive Metabolic Panel] Stat Lab 11/02/23 22:36 Completed Hemoglobin A1C Stat Lab 11/02/23 22:36 Completed UA [Urinalysis and Microscopic] Stat Lab 11/02/23 22:53 Completed VBG [Venous Blood Gas] Stat RT 11/02/23 22:29 Completed Medical Decision Narrative: 43-year-old female history of type 2 diabetes presenting with nausea, lightheadedness, fatigue. Took her glucose it was in the 500s at home, came immediately to the emergency department. No cough, fevers, chills, urinary symptoms, or any other concerns. History was obtained via conversation with patient. On arrival, patient hemodynamically stable, alert, oriented x4, appropriate, GCS 15, moving all extremities spontaneously, pupils equal and reactive to light. Full physical exam performed and significant for well-appearing, neurologically intact, unremarkable physical exam overall. Nontachycardic and hypertensive on my exam. Differential includes hyperglycemia, DKA, medication noncompliance, among others. Patient was given saline, 5 units insulin for symptomatic management and correction of underlying abnormalities. Workup independently interpreted and significant for mild leukocytosis 12.8, VBG nonactionable. No anion gap, glucose 350, hemoglobin A1c 11.5. No ketones in urine. 5 units of insulin were given. Prior to fluids and reevaluation, care handed off to oncoming physician. <Susan Arboledas, DO - Last Filed: 11/03/23 00:16> Vital Signs: 11/02/23 22:05 11/03/23 00:09 Temperature 98.5 F 98.1 F Temperature Source Oral Oral Pulse Rate 81 Pulse Rate [Left] 100 H Respiratory Rate 16 15 Blood Pressure 152/91 H Blood Pressure [Right Arm] 177/112 H Blood Pressure Mean [Right Arm] 133 Blood Pressure Source Automatic Cuff Blood Pressure Position Sitting 02 Sat by Pulse Oximetry 100 Oxygen Delivery Method Room Air Room Air Lab Data Lab Results 11/02/23 22:29: VBG pH 7.34, VBG pCO2 48.9, VBG pO2 31.0, VBG HCO3 26.0, VBG Total CO2 27.5 H, VBG O2 Saturation 63.5, VBG Base Excess 0.3, VBG Lactic Acid 2.3 H 11/02/23 22:36: WBC 12.8 H, RBC 5.09, Hgb 14.0, Hct 43.8, MCV 86.1, MCH 27.6, MCHC 32.1, RDW 15.1, Plt Count 314, MPV 8.1, Neut % (Auto) 55.7, Lymph % (Auto) 36.0, [place] % (Auto) 5.4, Eos % (Auto) 1.8, Baso % (Auto) 1.1, Neut # (Auto) 7.1, Lymph # (Auto) 4.6 H, [place] # (Auto) 0.7, Eos # (Auto) 0.2, Baso # (Auto) 0.1, Sodium 137, Potassium 3.9, Chloride 99, Carbon Dioxide 29, Anion Gap 12.9, BUN 12, Creatinine 0.50 L, Estimated Creat Clear 196, Estimated GFR 136, Est GFR ( Amer) 165, Glucose 348 H, Hemoglobin A1c 11.5 H, Calcium 10.0, Total Bilirubin 0.5, AST 30, ALT 36, Alkaline Phosphatase 77, Total Protein 8.0, Albumin 4.7, Globulin 3.3 H, Albumin/Globulin Ratio 1.4 11/02/23 22:53: Urine Color Yellow, Urine Appearance Clear, Urine pH 6.0, Ur Specific [place] 1.015, Urine Protein Negative, Urine Glucose (UA) 3+, Urine Ketones Negative, Urine Blood Negative, Urine Nitrate Negative, Urine Bilirubin Negative, Urine Urobilinogen 0.2, Ur Leukocyte Esterase Negative, Urine RBC None, Urine WBC 3-5, Ur Squamous Epith Cells Occasional, Urine Bacteria None Orders (Tests/Meds): ED MEDICATIONS Discontinued Medications Generic Name Dose Route Start Last Admin Trade Name Ирина PRN Reason Stop Dose Admin Sodium Chloride 1,000 mls @ 999 mls/hr 11/02/23 22:28 11/02/23 22:50 Sod Chlor 0.9% 1000ml Bag IV 11/02/23 23:28 999 mls/hr .Q1H1M ONE Administration Insulin Human Regular 5 unit 11/02/23 23:00 11/02/23 23:07 Insulin Human Regular 100 Units/Ml 10ml Vial IV 11/02/23 23:01 5 unit ONCE ONE Administration ORDERS Category Date Time Status CBC w/Auto Diff [Complete Blood Count Auto Diff] Stat Lab 11/02/23 22:36 Completed CMP [Comprehensive Metabolic Panel] Stat Lab 11/02/23 22:36 Completed Hemoglobin A1C Stat Lab 11/02/23 22:36 Completed UA [Urinalysis and Microscopic] Stat Lab 11/02/23 22:53 Completed VBG [Venous Blood Gas] Stat RT 11/02/23 22:29 Completed Medical Decision Narrative: 43-year-old female history of type 2 diabetes presenting with nausea, lightheadedness, fatigue. Took her glucose it was in the 500s at home, came immediately to the emergency department. No cough, fevers, chills, urinary symptoms, or any other concerns. History was obtained via conversation with patient. On arrival, patient hemodynamically stable, alert, oriented x4, appropriate, GCS 15, moving all extremities spontaneously, pupils equal and reactive to light. Full physical exam performed and significant for well-appearing, neurologically intact, unremarkable physical exam overall. Nontachycardic and hypertensive on my exam. Differential includes hyperglycemia, DKA, medication noncompliance, among others. Patient was given saline, 5 units insulin for symptomatic management and correction of underlying abnormalities. Workup independently interpreted and significant for mild leukocytosis 12.8, VBG nonactionable. No anion gap, glucose 350, hemoglobin A1c 11.5. No ketones in urine. 5 units of insulin were given. Prior to fluids and reevaluation, care handed off to oncoming physician. DO Palmer: On my assumption of care of the patient, she is resting comfortably. She is feeling better with normal vital signs on cardiac telemetry. Blood glucose is downtrending after fluids and insulin. At this time, feel that she would be appropriate for discharge home with close follow-up with her primary care provider for further management of her diabetes. Strict return precautions were given, and the patient was given instructions for dietary changes and monitoring of her glucose at home. Patient was discharged after all questions were answered. Critical Care <Floyd Serrano MD - Last Filed: 11/02/23 23:05> Critical Care Time Critical Care Time: No
[2023-11-02] MEDS: INSULIN HUMAN REGULAR 100 UNITS/ML 10ML VIAL 5 UNIT IV (23:07)
[2023-11-02 23:09] LABS: Squamous Epithelial Cell,Urine Occasional #/hpf (0-5)
[2023-11-03 00:09] VITALS: BP 152/91; PULSE 81; RESP 15; TEMP 36.7; O2SAT 100
== END 2023-11-03 00:10 | disposition home or self-care (01) ==
PROVIDERS: Emergency Medicine; Emergency Provider Emergency Medicine; PCP Internal Medicine Adolescent Medicine
DX: E86.0 Dehydration (principal); E11.65 Type 2 diabetes mellitus with hyperglycemia; R51.9 Headache, unspecified; R42 Dizziness and giddiness; R53.1 Weakness; I10 Essential (primary) hypertension
CPT/HCPCS: 80053; 81001; 82803; 83036; 85025; 96361; 96374; 99284

== ENCOUNTER 2024-06-09 14:16 | Emergency (ER) | payer OTHER, SELFPAY ==
[2024-06-09 15:12] VITALS: BP 147/78; PULSE 99; RESP 20; TEMP 36.9; O2SAT 98; BMI 30.1
--- NOTE | 2024-06-09 15:29 | EXP.UTC ---
Discharge Plan Disposition Patient Disposition: Home, Self-Care Condition: Good Prescriptions Prescriptions: New azithromycin [Zithromax Z-Brandyn] 250 mg tablet See Rx Instructions .ROUTE .COMPLEX 5 Days Qty: 6 0RF Rx Instructions: For 250 mg dose pack: take 500 mg today (day 1), then 250 mg for 4 days (days 2-5) guaifenesin [Mucinex] 600 mg tablet extended release 12hr 600 - 1,200 mg PO BID PRN (Reason: cough) Qty: 20 0RF No Action metformin 1,000 mg Tablet 1,000 mg PO BID Referrals Follow up/Referrals: Jack Merritt MD [Primary Care Provider] - See instructions Activity Restrictions/Add. Instructions Additional Instructions/Restrictions: *Monitor Temp, Over the counter Motrin or Tylenol as directed/as needed Tylenol every 4 hours and Motrin every 6 hours (as long as your family doctor has told you that you can take it) for fever or pain. and straight to ER if unable to lower temp less than 101.0 after medication given *Warm salt water gargles may help to soothe the throat *Throat Lozenges? *Warm fluids like tea with honey may help to soothe the throat? *Sleep elevated *Humidifier/Vaporizer Take medication as prescribed Your throat swab was sent for culture. Those results are typically sent to your primary care. Be sure to follow up in 2-3 days with your family doctor/primary care physician if no improvement so they can review those result and treat if necessary. If you don?t have a primary care doctor, I recommend you get one but in the mean time, you will have to return to a walk in clinic Follow up IMMEDIATELY for new or worsening symptoms or no Noticeable improvement over the next 48-72 hours. 911 for difficulty breathing or swallowing Clinical Impressions Clinical Impression: Sinusitis Instructions Patient Instructions: DI for Sinusitis, Sinusitis Print Language Print Language: Panamanian Discharge ED Provider: Essence Garcia [facility] HPI General Stated complaint: congestion cough Mode of Arrival: Ambulatory Source of Information: Patient Time Seen by Provider: 06/09/24 15:29 Description of Symptoms (Recalled from Triage Doc. by RN): COUGH, CONGESTION HEENT Symptoms (Recalled from RN notes): No Resp Symptoms (Recalled from RN notes): Yes Skin Symptoms (Recalled from RN notes): No MS Symptoms (Recalled from RN notes): No Functional Status (Recalled from RN notes): WNL History of Present Illness Provider Complaint: Patient states that she has been having sore throat, cough sinus congestion and pressure and pressure in her ears States got worse since yesterday so she came in to get checked Related Data Home Medications ?Medication ?Instructions ?Recorded ?Confirmed metformin 1,000 mg tablet 1,000 mg PO BID 04/29/23 06/09/24 Previous Rx's ?Medication ?Instructions ?Recorded azithromycin 250 mg tablet See Rx Instructions PO .COMPLEX 5 06/09/24 (Zithromax Z-Brandyn) days #6 tabs guaifenesin 600 mg tablet, 600 - 1,200 mg (1 - 2 x 600 mg) PO 06/09/24 extended release 12 hr (Mucinex) BID PRN cough #20 tabs Allergies Allergy/AdvReac Type Severity Reaction Status Date / Time No Known Allergies Allergy Verified 01/10/22 20:04 Worker's Comp Is this a Worker's Comp case?: No [facility] Disclaimer: The information contained in this section may have been updated after the patient was seen, as this information can be updated by other users. Medical History (Updated 06/09/24 @ 15:52 by Essence Garcia APRN) Diabetes mellitus, type 2 Hypertension Surgical History (Updated 04/29/23 @ 14:04 by Nataliya Smith RN) History of tubal ligation History of appendectomy Social History Smoking Status: Never smoker alcohol intake: never current occupational status: other Travel in the last 8 weeks: None ROS Obtained: Yes All systems reviewed & no additional complaints except as documented and Yes Systems reviewed as appropriate & no additional complaints except as documented Constitutional Constitutional: Reports system reviewed and no additional complaints, except as documented and Reports as per HPI ENT Ears, Nose, Mouth, and Throat: Reports system reviewed and no additional complaints, except as documented, Reports as per HPI, Reports otalgia, Reports sinus pain, Reports sinus pressure and Reports sore throat Cardiovascular Cardiovascular: Reports system reviewed and no additional complaints, except as documented and Reports as per HPI Respiratory Respiratory: Reports system reviewed and no additional complaints, except as documented, Reports as per HPI, Reports chest congestion and Reports cough Gastrointestinal Gastrointestingal: Reports system reviewed and no additional complaints, except as documented and as per HPI Physical Exam General General appearance: alert and in no apparent distress Expanded ENT Exam Nose exam: Present sinus tenderness Throat exam: Present tonsillar erythema (with small red patchy like area noted on right ) Chest Chest inspection: Present normal inspection, symmetric chest wall rise and tenderness Respiratory Respiratory exam: Present normal lung sounds bilaterally; Absent respiratory distress or wheezes Cardiovascular Cardiovascular exam: Present regular rate, normal rhythm and normal heart sounds Abdominal Exam Abdominal exam: Present soft and normal bowel sounds; Absent distention or tenderness Neurological Exam Neurological exam: Present alert, oriented X3 and normal gait Medical Decision Making Medical Records Screening: Per USPSTF and CDC recommendations, given the prevalence of disease in our region, it is our hospital?s policy to screen for HIV and viral Hepatitis for all patients aged 18 and over and those with ongoing risk factors. [place] Inquiry Pt receiving controlled substance: No [place] was queried for this patient: No Vital Signs: 06/09/24 15:12 Temperature 98.5 F Temperature Source Oral Pulse Rate [Right Radial] 99 H Respiratory Rate 20 Blood Pressure [Left Arm] 147/78 H Blood Pressure Mean [Left Arm] 101 02 Sat by Pulse Oximetry 98 Lab Data Lab results reviewed: Yes I reviewed the patient's lab results.
[2024-06-09 15:45] LABS: UTC Strep Screen (Rapid) Negative (Negative)
[2024-06-09 15:58] VITALS: BP 147/78; PULSE 99; RESP 20; TEMP 36.9
== END 2024-06-09 15:59 | disposition home or self-care (01) ==
PROVIDERS: Emergency Provider Nurse Practitioner; PCP Internal Medicine Adolescent Medicine
DX: J01.90 Acute sinusitis, unspecified (principal); R09.81 Nasal congestion; R05.9 Cough, unspecified; R07.0 Pain in throat; H92.09 Otalgia, unspecified ear
CPT/HCPCS: 87880; 99212; G0381

== ENCOUNTER 2024-07-24 18:16 | Emergency (ER) | payer OTHER, SELFPAY ==
[2024-07-24 19:10] VITALS: BP 196/98; PULSE 83; RESP 18; TEMP 36.7; O2SAT 97; BMI 31.0
--- NOTE | 2024-07-24 19:28 | ED_ITS ---
Discharge Plan Disposition Patient Disposition: Home, Self-Care Condition: Good Prescriptions Prescriptions: New cyclobenzaprine 10 mg Tablet 10 mg PO BID PRN (Reason: Muscle Spasm) Qty: 20 0RF methylprednisolone 4 mg Tablets,Dose Pack 4 mg PO DIRECTED 6 Days Qty: 21 0RF Rx Instructions: Take 1 pack as directed for 6 days No Action metformin 1,000 mg Tablet 1,000 mg PO BID Referrals Follow up/Referrals: Jack Merritt MD [Primary Care Provider] - See instructions Activity Restrictions/Add. Instructions Additional Instructions/Restrictions: Go home and rest. It would be best if you rested tomorrow too. No heavy lifting & No twisting for the next few days. Take the oral medications as directed. The muscle relaxer (cyclobenzaprine--Flexeril) will make you drowsy, so don't drive or operate heavy machinery after taking it. Don't start the oral steroids (medrol dose pack) until tomorrow, since you had the shots in here today. Follow up with your regular doctor. GO TO THE ER FOR ANY WORSENING SYMPTOMS OR CONCERN, ESPECIALLY BOWEL OR BLADDER ISSUES, SADDLE AREA NUMBNESS, FEVER, ETC Clinical Impressions Clinical Impression: Acute low back pain with sciatica Stand Alone Forms Stand Alone Forms: Work/School Release Instructions Patient Instructions: Low Back Pain, DI for Low Back Pain, DI for Sciatica, Ketorolac Injection, Dexamethasone Injection Print Language Print Language: Sammarinese Discharge ED Provider: Asael De Los Santos [facility] [place] HPI General Stated complaint: back and leg pain Mode of Arrival: Ambulatory Source of Information: Patient Limitations: No Limitations Time Seen by Provider: 07/24/24 19:28 Description of Symptoms (Recalled from Triage Doc. by RN): PATIENT C/O PAIN TO RIGHT LOWER BACK THAT RADIATES DOWN LEG INTO FOOT FOR APPROX 1 WEEK. PATIENT DENIES INJURY AND REPORTS A HISTORY OF SCIATICA HEENT Symptoms (Recalled from RN notes): No Resp Symptoms (Recalled from RN notes): No Skin Symptoms (Recalled from RN notes): No MS Symptoms (Recalled from RN notes): Yes Functional Status (Recalled from RN notes): WNL History of Present Illness Provider Complaint: She states that for the past 1 week approximately she has had low back pain that radiates down her right leg. She denies any injury or recent falls. She has had similar episodes in the past, but this time she states her pain and sciatica has been worse than normal. She denies any urinary complaints. She denies any fever/chills/malaise. Related Data Home Medications ?Medication ?Instructions ?Recorded ?Confirmed metformin 1,000 mg tablet 1,000 mg PO BID 04/29/23 07/24/24 Previous Rx's ?Medication ?Instructions ?Recorded cyclobenzaprine 10 mg tablet 10 mg PO BID PRN Muscle Spasm #20 07/24/24 tabs methylprednisolone 4 mg tablets in 4 mg PO DIRECTED 6 days #21 tabs 07/24/24 a dose pack Allergies Allergy/AdvReac Type Severity Reaction Status Date / Time No Known Allergies Allergy Verified 01/10/22 20:04 Worker's Comp Is this a Worker's Comp case?: No [facility] Disclaimer: The information contained in this section may have been updated after the patient was seen, as this information can be updated by other users. Medical History (Updated 07/24/24 @ 20:03 by Asael De Los Santos APRN) Diabetes mellitus, type 2 Hypertension Surgical History (Updated 04/29/23 @ 14:04 by Nataliya Smith RN) History of tubal ligation History of appendectomy Social History Smoking Status: Never smoker alcohol intake: never current occupational status: other Travel in the last 8 weeks: None Have you lived/traveled outside US in past 30 days?: No Contact w/someone who lives/traveled outside US past 30 days?: No Exposure to someone with infectious disease in past 14 days?: No Do you have a fever (greater than 100.4 F or 38 C)?: No Have you tested positive for COVID-19: No Exposed to someone with COVID-19 in past 14 days?: No Do you have a sore throat?: No Do you have a cough?: No Do you have any weakness?: No Do you have any diarrhea?: No Are you experiencing any unusual bleeding?: No Do you have any muscle aches/pain?: No Do you have any abdominal pain?: No Are you experiencing loss of taste or smell?: No ROS Obtained: Yes All systems reviewed & no additional complaints except as documented Constitutional Constitutional: Denies chills and Denies fever(s) Eyes Eyes: Denies eye discharge ENT Ears, Nose, Mouth, and Throat: Denies dizziness, Denies otalgia, Denies neck pain and Denies sore throat Cardiovascular Cardiovascular: Denies chest pain Respiratory Respiratory: Denies shortness of breath, Denies chest congestion, Denies cough, Denies stridor and Denies wheezing Gastrointestinal Gastrointestingal: Denies nausea or vomiting Musculoskeletal Musculoskeletal: Reports as per HPI, Reports back pain and Denies neck pain Integumentary/Breasts Skin/Breast: Denies redness, Denies rash and Denies wounds Neurologic Neurologic: Denies dizziness and Denies paresthesias Allergic/Immunologic Allergic/Immunologic: Denies wheezing Physical Exam General General appearance: alert and in no apparent distress Head Head exam: atraumatic, normocephalic and normal inspection Eye Eye exam: Present normal appearance, PERRL and EOMI ENT ENT exam: Present normal exam, normal oropharynx, mucous membranes moist, TM's normal bilaterally and normal external ear exam Neck Neck exam: Present normal inspection, full ROM and trachea midline; Absent meningismus or lymphadenopathy Chest Chest inspection: Present normal inspection and symmetric chest wall rise; Absent tenderness Respiratory Respiratory exam: Present normal lung sounds bilaterally; Absent respiratory distress Cardiovascular Cardiovascular exam: Present regular rate and normal rhythm; Absent JVD Abdominal Exam Abdominal exam: Present soft and normal bowel sounds; Absent distention, tendern ess or guarding Extremities Exam Extremities exam: Present normal inspection, full ROM and normal capillary refill; Absent calf tenderness Back Exam Back exam: Present normal inspection and full ROM; Absent tenderness, CVA tenderness (R), CVA tenderness (L), muscle spasm, paraspinal tenderness, verteb ral tenderness, rashes, sciatic notch tenderness (R), sciatic notch tenderness (L), straight leg raise (R) or straight leg raise (L) Neurological Exam Neurological exam: Present alert, oriented X3, CN II-XII intact, normal gait and reflexes normal; Absent motor sensory deficit Expanded Neurological Exam Speech: Present fluid speech Cranial nerves: Normal: EOM function (II, III, IV, ), facial sensation (V), facial palsy (VII), gag reflex (IX), spinal accessory function (XI) and tongue deviation (XII) Cerebellar function: normal gait Motor strength - LUE: 5/5 Motor strength - RUE: 5/5 Motor strength - LLE: 5/5 Motor strength - RLE: 5/5 Sensory exam upper extremity: Normal: light touch and 2 point discrimination Sensory exam lower extremity: Normal: light touch and 2 point discrimination DTR: 2+: biceps (L), biceps (R), patellar (L), patellar (R), Achilles tendon (L) and Achilles tendon (R) Spinal cord function: Absent saddle anesthesia Psychiatric Psychiatric exam: Present normal affect and normal mood Skin Skin exam: Present warm, dry, intact and normal color Lymphatic Lymphatic Findings: no adenopathy Medical Decision Making Medical Records Medical records reviewed: No I reviewed the patient's medical records. Screening: Per USPSTF and CDC recommendations, given the prevalence of disease in our region, it is our hospital?s policy to screen for HIV and viral Hepatitis for all patients aged 18 and over and those with ongoing risk factors. [place] Inquiry Pt receiving controlled substance: No Vital Signs: 07/24/24 19:10 Temperature 98.0 F Temperature Source Oral Pulse Rate [Left Brachial] 83 Respiratory Rate 18 Blood Pressure [Left Arm] 196/98 H Blood Pressure Mean [Left Arm] 130 Blood Pressure Source [Left Arm] Automatic Cuff Blood Pressure Position [Left Arm] Sitting 02 Sat by Pulse Oximetry 97 Oxygen Delivery Method Room Air
[2024-07-24] MEDS: DEXAMETHASONE 4MG/ML 1ML VIAL 8 MG IM (19:50)
[2024-07-24] MEDS: KETOROLAC 30MG/ML VIAL 30 MG IM (19:50)
[2024-07-24 20:05] VITALS: BP 196/98; PULSE 83; RESP 18; TEMP 36.7; O2SAT 97
== END 2024-07-24 20:10 | disposition home or self-care (01) ==
PROVIDERS: Emergency Provider Nurse Practitioner Family; PCP Internal Medicine Adolescent Medicine
DX: M54.41 Lumbago with sciatica, right side (principal)
CPT/HCPCS: 96372; 99213; G0381; J1100; J1885

== ENCOUNTER 2025-05-06 16:07 | Emergency (ER) | payer OTHER, SELFPAY ==
[2025-05-06 16:39] VITALS: BP 199/99; PULSE 97; RESP 18; TEMP 36.8; O2SAT 100; BMI 30.7
[2025-05-06 16:51] LABS: Hematocrit 37.0 % (37.0-47.0); Hemoglobin 12.0 g/dL (12.2-16.2); Immature Granulocytes % 0.3 %; Mean Corpuscular HGB Conc 32.4 g/dL (31.8-35.4); Mean Corpuscular Hemoglobin 27.5 pg (27.0-31.2); Mean Corpuscular Volume 84.7 fl (81-99); Nucleated Red Blood Cells % 0 %; Platelet Count 343 K/mm3 (142-424); Red Blood Count 4.37 M/mm3 (4.20-5.40); Red Cell Distribution Width-SD 40.0 fL; White Blood Count 16.3 K/mm3 (4.8-10.8)
[2025-05-06 16:55] LABS: Microscopic, Urine URINE MICROSCOPIC (MICROSCOPIC)
[2025-05-06 17:07] LABS: Alanine Aminotransferase 30 U/L (12-78); Albumin Level 4.6 g/dl (3.5-5.0); Albumin/Globulin Ratio 1.4 (1.1-1.8); Alkaline Phosphatase 64 U/L (38-126); Anion Gap 12.8 mEq/L (5-15); Aspartate Amino Transferase 33 U/L (14-36); Bilirubin,Total 0.4 mg/dl (0.2-1.3); Blood Urea Nitrogen 9 mg/dl (7-17); Calcium 9.2 mg/dl (8.4-10.2); Carbon Dioxide 25 mmol/L (22.0-30.0); Chloride 100 mmol/L (98-107); Creatinine Clearance Estimated 197 mL/min (50-200); Creatinine,Serum 0.50 mg/dl (0.52-1.04); Estimated Glomerular Filt Rate 135 ml/min (>60); GFR (African American) 163 ML/MIN (>60); Globulin 3.4 g/dL (1.3-3.2); Glucose 197 mg/dl (74-100); Lipase 221 U/L (23-300); Potassium 3.8 mmoL/L (3.5-5.1); Sodium 134 mmol/L (136-145); Total Protein,Serum 8.0 g/dl (6.3-8.2)
[2025-05-06 17:11] LABS: Bilirubin,Urine Negative (Negative); Color,Urine YELLOW (Yellow); Glucose,Urine (UA) 2+ (Negative); Ketones,Urine TRACE (Negative); Leukocyte Esterase,Urine 2+ (Negative); PH,Urine 6.0 (5.0-8.5); Protein,Urine 2+ (Negative); Specific Gravity, Urine 1.020 (1.005-1.030); Urobilinogen,Urine 1.0 EU/dl (0.2)
[2025-05-06 17:15] LABS: Urine Pregnancy, HCG Qual. Negative (Negative)
[2025-05-06 17:35] LABS: Bacteria,Urine 1+ /lpf; WBC,Urine Occasional #/hpf (0-3)
--- NOTE | 2025-05-06 17:45 | CT_ITS ---
PROCEDURE INFORMATION: Exam: CT Abdomen And Pelvis With Contrast Exam date and time: 05/06/2025 6:10 PM Age: 45 years old Clinical indication: Abdominal pain TECHNIQUE: Imaging protocol: Computed tomography of the abdomen and pelvis with contrast. Radiation optimization: All CT scans at this facility use at least one of these dose optimization techniques: automated exposure control; mA and/or kV adjustment per patient size (includes targeted exams where dose is matched to clinical indication); or iterative reconstruction. Contrast material: ISOVUE; Contrast volume: 75 ml; Contrast route: IV; COMPARISON: US LIVER 02/17/2019 8:55 AM FINDINGS: Liver: No suspicious mass. Gallbladder and biliary ducts: No calcified stones. No ductal dilation. Pancreas: No ductal dilation. No peripancreatic inflammatory changes. Spleen: Unremarkable. Adrenal glands: No mass. Kidneys and ureters: No hydronephrosis. Unremarkable renogram. Stomach and bowel: Moderate amount of stool in the colon. Nonobstructive bowel gas pattern. Appendix: Probable appendectomy. Probable appendiceal stump Intraperitoneal space: No evidence of pneumoperitoneum. Vasculature: Vascular calcifications. No abdominal aortic aneurysm. Lymph nodes: No lymphadenopathy by size criteria. Urinary bladder: Fluid in the urinary bladder. Reproductive: The uterus is present. bilateral tubal ligations. Prominent parauterine vasculature most consistent with pelvic congestion syndrome. Bones/joints: No suspicious osseous lesion. No acute fracture. Soft tissues: No suspicious mass. IMPRESSION: 1. Nonobstructive bowel gas pattern. 2. Prominent parauterine vasculature most consistent with pelvic congestion syndrome.
--- NOTE | 2025-05-06 17:51 | ED_ITS ---
<Statement entered by Chas Garcia MD - 05/07/25 10:30> I was consulted by the DEV, and we discussed the complexity of the problems being addressed. I approve the treatment and management plan for this patient's care in the emergency department, thus performing a substantive portion of the medical decision making. Chas Garcia MD Discharge Plan Disposition Chief Complaint: Abdominal Pain Prescriptions Prescriptions: No Action metformin 1,000 mg Tablet 1,000 mg PO BID cyclobenzaprine 10 mg Tablet 10 mg PO BID PRN (Reason: Muscle Spasm) Qty: 20 0RF Referrals Follow up/Referrals: Jack Merritt MD [Primary Care Provider, Internal Medicine] - See instructions Instructions Patient Instructions: DI for Acute Abdominal Pain Print Language Print Language: Czech Discharge ED Provider: Chas Garcia General Adult HPI General Chief complaint: Abdominal Pain Stated complaint: Abdominal pain, blood in urine Time Seen by Provider: 05/06/25 17:41 Mode of Arrival: Ambulatory Source of Information: Patient Description of Symptoms (Recalled from ER Triage Doc. by RN): patient presents for abdominal pain that started 2 days ago. it started in her mid abdomen but has not spread thorughout her abdomen. she also reports blood in her urine as of today. endorses pain urinating. History of Present Illness HPI narrative: 45-year-old female presents to the ED today for complaint of dysuria since Sunday. She says it got bad or worse today. She has had pain with urination, nausea, no vomiting and no fevers. She has had diffuse abdominal pain that started 2 days ago as well. She says that she has lower abdominal pain and pain that goes throughout her upper abdomen as well. She does have pain with urination. Related Data Home Medications ?Medication ?Instructions ?Recorded ?Confirmed metformin 1,000 mg tablet 1,000 mg PO BID 04/29/2306/25 Previous Rx's ?Medication ?Instructions ?Recorded cyclobenzaprine 10 mg tablet 10 mg PO BID PRN Muscle S pasm #20 07/24/24 tabs Allergies Allergy/AdvReac Type Severity Reaction Status Date / Time No Known Allergies Allergy Verified 08/13/24 17:05 [facility] Disclaimer: The information contained in this section may have been updated after the patient was seen, as this information can be updated by other users. Medical History , AESTHETICIAN) Diabetes mellitus, type 2 Hypertension Surgical History , AESTHETICIAN) History of tubal ligation History of appendectomy Social History , AESTHETICIAN) Smoking Status: Light tobacco smoker tobacco type: cigarettes packs per day: 1 alcohol intake: never current occupational status: other Travel in the last 8 weeks?: None Have you lived/traveled outside US in past 30 days?: No Contact w/someone who lives/traveled outside US past 30 days?: No Exposure to someone with infectious disease in past 14 days?: No Do you have a fever (greater than 100.4 F or 38 C)?: No Have you tested positive for COVID-19?: No Exposed to someone with COVID-19 in past 14 days?: No Do you have a sore throat?: No Do you have a cough?: No Do you have any weakness?: No Do you have any diarrhea?: No Are you experiencing any unusual bleeding?: No Do you have any muscle aches/pain?: No Do you have any abdominal pain?: No Are you experiencing loss of taste or smell?: No ROS Obtained: Yes Systems reviewed as appropriate & no additional complaints except as documented Constitutional Constitutional: Reports as per HPI Physical Exam General General appearance: alert and in distress Head Head exam: normocephalic Eye Eye exam: Present PERRL and EOMI ENT ENT exam: Present normal oropharynx and mucous membranes moist Neck Neck exam: Present full ROM and trachea midline Respiratory Respiratory exam: Present normal lung sounds bilaterally Cardiovascular Cardiovascular exam: Present normal rhythm, normal heart sounds, +S1 and +S2 Abdominal Exam Abdominal exam: Present soft and normal bowel sounds Abdominal tenderness: Present diffuse and mild Extremities Exam Extremities exam: Present full ROM and normal capillary refill Back Exam Back exam: Present normal inspection Neurological Exam Neurological exam: Present alert and oriented X3 Skin Skin exam: Present warm and dry Medical Decision Making Medical Records Screening: Per USPSTF and CDC recommendations, given the prevalence of disease in our region, it is our hospital?s policy to screen for HIV and viral Hepatitis for all patients aged 18 and over and those with ongoing risk factors. [place] Inquiry Pt receiving controlled substance: No [place] was queried for this patient: No Vital Signs: 05/06/25 16:39 Temperature 98.2 F Temperature Source Oral Pulse Rate [Right Radial] 97 H Respiratory Rate 18 Blood Pressure [Right Arm] 199/99 H Blood Pressure Mean [Right Arm] 132 Blood Pressure Source [Right Arm] Automatic Cuff Blood Pressure Position [Right Arm] Sitting 02 Sat by Pulse Oximetry 100 Oxygen Delivery Method Room Air Lab Data Lab Results 05/06/25 16:45: WBC 16.3 H, RBC 4.37, Hgb 12.0 L, Hct 37.0, MCV 84.7, MCH 27.5, MCHC 32.4, RDW 13.1, Plt Count 343, MPV 9.8, Neut % (Auto) 64.2, Lymph % (Auto) 26.6, [place] % (Auto) 7.2, Eos % (Auto) 1.2, Baso % (Auto) 0.5, Neut # (Auto) 10.4 H, Lymph # (Auto) 4.3, [place] # (Auto) 1.2 H, Eos # (Auto) 0.2, Baso # (Auto) 0.1, Sodium 134 L, Potassium 3.8, Chloride 100, Carbon Dioxide 25, Anion Gap 12.8, BUN 9, Creatinine 0.50 L, Estimated Creat Clear 197, Estimated GFR 135, Est GFR ( Amer) 163, Glucose 197 H, Calcium 9.2, Total Bilirubin 0.4, AST 33, ALT 30, Alkaline Phosphatase 64, Total Protein 8.0, Albumin 4.6, Globulin 3.4 H, Albumin/Globulin Ratio 1.4, Lipase 221, Urine Color Yellow, Urine Appearance Clear, Urine pH 6.0, Ur Specific [place] 1.020, Urine Protein 2+ A, Urine Glucose (UA) 2+, Urine Ketones Trace, Urine Blood 3+ A, Urine Nitrate Positive A , Urine Bilirubin Negative, Urine Urobilinogen 1.0, Ur Leukocyte Esterase 2+ A, Urine RBC 3-5, Urine WBC Occasional, Ur Squamous Epith Cells None, Urine Bacteria 1+, Urine HCG, Qual Negative 05/06/25 16:45 05/06/25 16:45 Orders (Tests/Meds): ED MEDICATIONS Generic Name Dose Route Start Last Admin Trade Name Freq PRN Reason Stop Dose Admin Ceftriaxone Sodium 2 gm/ 100 mls @ 200 mls/hr 05/06/25 18:00 05/06/25 18:31 Sodium Chloride IV 05/16/25 17:59 200 mls/hr Q24H IDA Administration Discontinued Medications Generic Name Dose Route Start Last Admin Trade Name Ирина PRN Reason Stop Dose Admin Acetaminophen 1,000 mg 05/06/25 17:45 05/06/25 18:31 Acetaminophen 1,000mg/100ml Vial IV 05/06/25 17:46 1,000 mg ONCE ONE Administration Sodium Chloride 1,000 mls @ 999 mls/hr 05/06/25 17:45 05/06/25 18:30 Sod Chlor 0.9% 1000ml Bag IV 05/06/25 18:45 999 mls/hr .Q1H1M ONE Administration Iopamidol 75 ml 05/06/25 18:11 05/06/25 18:12 Iopamidol-370 (76%);100ml Bottle IV 05/06/25 18:12 75 ml ONCE ONE Administration Ketorolac Tromethamine 30 mg 05/06/25 17:45 05/06/25 18:31 Ketorolac 30mg/Ml Vial IV 05/06/25 17:46 30 mg ONCE ONE Administration Phenazopyridine HCl 200 mg 05/06/25 17:52 05/06/25 18:31 Phenazopyridine 200mg Tablet PO 05/06/25 17:53 200 mg ONCE ONE Administration Sodium Chloride 10 ml 05/06/25 18:11 05/06/25 18:11 Sodium Chloride 0.9% 10ml Syr (Rad Only) IV 05/06/25 18:12 10 ml ONCE ONE Administration ORDERS Category Date Time Status CT abdomen pelvis w con Stat Cat Scan 05/06/25 17:45 Completed Complete Blood Count Auto Diff Stat Lab 05/06/25 16:45 Completed Comprehensive Metabolic Panel Stat Lab 05/06/25 16:45 Completed Lipase Stat Lab 05/06/25 16:45 Completed UA [Urinalysis and Microscopic] Stat Lab 05/06/25 16:45 Completed Urine , HCG Qual. Stat Lab 05/06/25 16:45 Completed Urine Culture Stat Micro 05/06/25 16:45 Received Medical Decision Narrative: patient is a 45-year-old female presenting to the emergency department for evaluation of dysuria and abdominal pain for the past 2 days. Patient is hemodynamically stable and nontoxic-appearing upon arrival, afebrile. Differential diagnosis includes UTI, pyelonephritis, kidney stone, amongst others. Workup will be conducted with hematologic labs, specific imaging. Initial inventions include crystalloid bolus, analgesics. Initial workup reviewed by me hematologic labs are remarkable for Bilateral knee pain elevated white count at 16.3, low sodium at 134, creatinine at 0.50, urine showed 2+ protein, 3+ blood, nitrate positive and 2+ leukocyte positive with 1+ bacteria in her urine. With patient's abdominal pain I chose to do a CT scan which we are waiting on the results at this time. Patient CT scan showed pelvic congestion syndrome but otherwise normal CT scan. Patient has UTI which will be treated with antibiotics and Pyridium. Patient will be given her fluids and IV Tylenol and then will be discharged home. Critical Care Critical Care Time Critical Care Time: No
[2025-05-06] MEDS: SODIUM CHLORIDE 0.9% 10ML SYR (RAD ONLY) 10 ML IV (18:11)
[2025-05-06] MEDS: IOPAMIDOL-370 (76%);100ML BOTTLE 75 ML IV (18:12)
[2025-05-06] MEDS: 0.9 % SODIUM CHLORIDE 1000ML 1,000 ML 999 ML IV (18:30)
[2025-05-06] MEDS: ACETAMINOPHEN 1,000MG/100ML VIAL 1000 MG IV (18:31)
[2025-05-06] MEDS: PHENAZOPYRIDINE 200MG TABLET 200 MG PO (18:31)
[2025-05-06] MEDS: KETOROLAC 30MG/ML VIAL 30 MG IV (18:31)
[2025-05-06 19:36] VITALS: BP 176/87; PULSE 82; RESP 20; TEMP 36.8; O2SAT 98
--- NOTE | 2025-05-08 06:32 | PC.NURSE ---
Urine culture results given to MD Emanuel, no changes to prescriptions at this time
--- NOTE | 2025-05-10 02:12 | PC.NURSE ---
No change to abx per Dr. brooks
--- NOTE | 2025-05-10 12:54 | PC.NURSE ---
Final urine culture results discussed with by shift supervisor rn charge manager. No change needed for treatment.
== END 2025-05-06 19:36 | disposition home or self-care (01) ==
PROVIDERS: Emergency Provider Student in an Organized Health Care Education/Training Program; PCP Internal Medicine Adolescent Medicine
DX: R10.84 Generalized abdominal pain (principal); N39.0 Urinary tract infection, site not specified; R31.9 Hematuria, unspecified; R30.0 Dysuria; B96.20 Unspecified Escherichia coli [E. coli] as the cause of diseases classified elsewhere
CPT/HCPCS: 74177; 80053; 81001; 81025; 83690; 85025; 87086; 87088; 87186; 96365; 96366; 96375; 99284; J0131; J0696; J1885; J7030; Q9967

== ENCOUNTER 2025-06-07 15:19 | Outpatient (CLI) | payer OTHER, SELFPAY | END 2025-06-07 23:59 | disposition home or self-care (01) | LOC: LAB.DROPOF 06-08 11:21 | PROVIDERS: PCP Internal Medicine Adolescent Medicine; Visit Provider Nurse Practitioner | DX: N39.0 Urinary tract infection, site not specified (principal) | CPT/HCPCS: 87086 ==